=== PATIENT | female | born 1995 | race African-American/Black ===

== ENCOUNTER 2017-01-31 12:34 | Emergency (ER) | payer OTHER ==
[~2017-01-31] VITALS: Ht 160 cm; Wt 56.0 kg
[2017-01-31 13:45] LABS: BILIRUBIN,URINE NEG (NEG); CLARITY,URINE CLOUDY; COLOR,URINE YELLOW; GLUCOSE,URINE NEG (NEG)
[2017-01-31 13:46] LABS: BACTERIA,URINE MOD /HPF (0-FEW); NITRITE,URINE NEG (NEG); RBC,URINE RARE /HPF (0-2); SQUAMOUS EPITHELIAL CELL,UR MANY /LPF; UROBILINOGEN,URINE 1 mg/dL (0.2 mg/dL)
[2017-01-31] MEDS ORDERED: IOHEXOL 240 MG/ML 50ML VIAL. PO ONE (14:30)
[2017-01-31] MEDS ORDERED: ONDANSETRON PF 4 MG/2 ML VIAL. IV ONE (14:30)
[2017-01-31] MEDS ORDERED: IOHEXOL 300 MG/ML 75 ML VIAL. IV ONE (14:30)
[2017-01-31] MEDS ORDERED: MORPHINE SULFATE 4 MG/ML DISP.SYRIN. IV ONE (14:30)
--- NOTE | 2017-01-31 14:30 | ED.ADGEN ---
Past History Past Medical History: Asthma Alcohol Use: None Drug Use: None Adult General Chief Complaint Chief Complaint Right flank pain HPI HPI Patient is a female presents with right flank pain radiating to right lower quadrant pain starting approximately 2 hours prior to ED arrival. Pain is described as sharp, worse with palpation and movement. Patient denies urinary frequency urgency, vaginal bleeding discharge. No history of kidney stones or ovarian cysts. Patient's last menstrual period was 2 weeks ago. On control. No prior abdominal surgeries. Review of Systems Review of Systems ROS as per HPI. Current Medications Current Medications Current Medications Medications (Trade) Dose Ordered Sig/Lewis Start Time Stop Time Status Last Admin Dose Admin Iohexol (Omnipaque 240 Mg/ml) 30 ml 1X ONCE 01/31/17 14:30 01/31/17 14:31 DC Iohexol (Omnipaque 300 Mg/ml) 75 ml 1X ONCE 01/31/17 14:30 01/31/17 14:31 DC Morphine Sulfate (Morphine 4mg Syringe) 4 mg 1X ONCE 01/31/17 14:30 01/31/17 14:31 DC 01/31/17 14:47 4 MG Ondansetron HCl (Zofran) 4 mg 1X ONCE 01/31/17 14:30 01/31/17 14:31 DC 01/31/17 14:48 4 MG Allergies Allergies Allergies Coded Allergies Type Severity Reaction Last Updated Verified No Known Drug Allergies 01/31/17 No Physical Exam Physical Exam Constitutional: Well developed, well nourished, no acute distress, non-toxic appearance. [] HENT: Normocephalic, atraumatic, bilateral external ears normal, oropharynx moist, no oral exudates, nose normal. Eyes: PERRLA, EOMI, conjunctiva normal, no discharge. Neck: Normal range of motion, no tenderness, supple, no stridor. Cardiovascular:Heart rate regular rhythm, no murmur. Lungs & Thorax: Bilateral breath sounds clear to auscultation. Abdomen: Bowel sounds normal, soft, right lower quadrant pain, tenderness, reproduces with palpation and movement. Skin: Warm, dry. Back: No tenderness, R CVA tenderness. Extremities: No tenderness. Neurologic: Alert and oriented X 3, normal motor function, normal sensory function, no focal deficits noted. Psychologic: Affect normal, judgement normal, mood normal. Current Patient Data Vital Signs Vital Signs Date Time Temp Pulse Resp B/P Pulse Ox O2 Delivery O2 Flow Rate FiO2 01/31/17 14:47 18 100 01/31/17 12:34 98.0 103 Room Air Lab Results Laboratory Tests Test 01/31/17 12:44 01/31/17 12:54 01/31/17 14:30 Urine Collection Type Unknown Urine Color Yellow Urine Clarity Cloudy Urine pH 6.5 Urine Specific [place] >=1.030 Urine Protein 100 mg/dl (NEG-TRACE) Urine Glucose (UA) Negmg/dL (NEG) Urine Ketones (Stick) Negmg/dL (NEG) Urine Blood Neg (NEG) Urine Nitrite Neg (NEG) Urine Bilirubin Neg (NEG) Urine Urobilinogen Dipstick 1mg/dL (0.2 mg/dL) Urine Leukocyte Esterase Trace (NEG) Urine RBC Rare/HPF (0-2) Urine WBC 5-10/HPF (0-4) Urine Squamous Epithelial Cells Many/LPF Urine Bacteria Mod/HPF (0-FEW) Urine Mucus Marked/LPF POC Urine HCG, Qualitative hcg negative (Negative) White Blood Count 3.8x10^3/uL (4.0-11.0) L Red Blood Count 4.49x10^6/uL (3.50-5.40) Hemoglobin 14.0g/dL (12.0-15.5) Hematocrit 42.2% (36.0-47.0) Mean Corpuscular Volume 94fL (79-100) Mean Corpuscular Hemoglobin 31pg (25-35) Mean Corpuscular Hemoglobin Concent 33g/dL (31-37) Red Cell Distribution Width 14.0% (11.5-14.5) Platelet Count 234x10^3/uL (140-400) Neutrophils (%) (Auto) 39% (31-73) Lymphocytes (%) (Auto) 48% (24-48) Monocytes (%) (Auto) 9% (0-9) Eosinophils (%) (Auto) 2% (0-3) Basophils (%) (Auto) 2% (0-3) Neutrophils # (Auto) 1.5x10^3uL (1.8-7.7) L Lymphocytes # (Auto) 1.8x10^3/uL (1.0-4.8) Monocytes # (Auto) 0.3x10^3/uL (0.0-1.1) Eosinophils # (Auto) 0.1x10^3/uL (0.0-0.7) Basophils # (Auto) 0.1x10^3/uL (0.0-0.2) Platelet Estimate Pending Sodium Level 139mmol/L (136-145) Potassium Level 3.8mmol/L (3.5-5.1) Chloride Level 103mmol/L (98-107) Carbon Dioxide Level 31mmol/L (21-32) Anion Gap 5 (6-14) L Blood Urea Nitrogen 10mg/dL (7-20) Creatinine 0.8mg/dL (0.6-1.0) Estimated GFR (Cockcroft-Gault) 107.6 Glucose Level 55mg/dL (70-99) L Calcium Level 9.2mg/dL (8.5-10.1) C-Reactive Protein 1.1mg/L (0-3.3) EKG EKG [] Radiology/Procedures Radiology/Procedures [CT abdomen pelvis: Normal appendix identified, tilted uterus with possible migration of IUD, no dominant ovarian follicles or pelvic lymphnodes per radiology report. ] Impressions: Right sided pelvic pain Course & Med Decision Making Course & Med Decision Making Pertinent Labs and Imaging studies reviewed. (See chart for details) [Nonsurgical evaluation. CT abdomen and pelvis 5 normal appendix, tilted uterus with possible ED migration. Patient denies vaginal bleeding, discharge or dyspareunia. Will treat for presumptive UTI with PCP follow-up for culture results. If symptoms persist, patient required ECONOMIC SPECIALIST evaluation. Return precautions reviewed. Patient verbalizes understanding treatment discharge instructions prior to departure.] Final Impression Final Impression [1. Pelvic pain] Problems: Dragon Disclaimer Dragon Disclaimer This electronic medical record was generated, in whole or in part, using a voice recognition dictation system. SOILA BALLESTEROS DO Jan 31, 2017 14:30
[2017-01-31 14:53] LABS: BASO # 0.1 x10^3/uL (0.0-0.2); BASO % 2 % (0-3); EOS # 0.1 x10^3/uL (0.0-0.7); EOS % 2 % (0-3); HEMATOCRIT 42.2 % (36.0-47.0); LYMPH # 1.8 x10^3/uL (1.0-4.8); LYMPH % 48 % (24-48); MEAN CORPUSCULAR HEMOGLOBIN 31 pg (25-35); MEAN CORPUSCULAR HGB CONC 33 g/dL (31-37); MEAN CORPUSCULAR VOLUME 94 fL (79-100); MONO # 0.3 x10^3/uL (0.0-1.1); MONO % 9 % (0-9); NEUT # 1.5 x10^3uL (1.8-7.7); NEUT % 39 % (31-73); PLATELET COUNT 234 x10^3/uL (140-400); RED BLOOD COUNT 4.49 x10^6/uL (3.50-5.40); WHITE BLOOD COUNT 3.8 x10^3/uL (4.0-11.0)
[2017-01-31 14:58] LABS: C REACTIVE PROTEIN 1.1 mg/L (0-3.3); CALCIUM 9.2 mg/dL (8.5-10.1); CREATININE 0.8 mg/dL (0.6-1.0); GFR 107.6; POTASSIUM 3.8 mmol/L (3.5-5.1)
--- NOTE | 2017-01-31 16:01 | RAD ---
CT study of the abdomen and pelvis with contrast Clinical indications: Lower right abdominal pain for one day. Technique: After IV infusion of 75 cc of Omnipaque 300, helical CT scanning of the abdomen and pelvis was performed. GI contrast was administered per mouth. PQRS Compliance Statement: One or more of the following individualized dose reduction techniques were utilized for this examination: 1. Automated exposure control 2. Adjustment of the mA and/or kV according to patient size 3. Use of iterative reconstruction technique Comparison: None available. Findings: The liver and spleen and pancreas and gallbladder are normal. No extrahepatic biliary ductal dilatation is seen. No adrenal mass is evident. Both kidneys are normal without hydronephrosis or hydroureter. Urinary bladder wall is smooth. IUD is in place within the lower uterine endometrial canal. IUD appears tilted to the side.. Migration into a portion of the myometrium is possible. Urinary bladder wall is smooth. No dominant ovarian cyst or mass is seen. No focal aneurysmal dilatation of the abdominal aorta is seen. No enlarged abdominal or pelvic lymphadenopathy is evident and ex is normal. No obstructive bowel pattern is seen. No free air or free fluid or inflammatory change is seen. No lung base consolidation is evident. No osteolytic process is evident. IMPRESSION: Appendix is normal. No bowel obstruction is evident. An IUD is in place and is located within the lower endometrial canal. The IUD is tilted. Therefore migration into the myometrium is possible.
[2017-01-31 16:25] VITALS: BP 96/55
[2017-01-31 20:08] LABS: % BASOS 1 % (0-3); % EOS 2 % (0-5); % LYMPHS 45 % (24-48); % MONOS 7 % (0-10); % SEGS 40 % (35-66); PLT ESTIMATE ADEQUATE (ADEQUATE)
== END 2017-01-31 16:25 | disposition home or self-care (01) ==
LOC: ER 12:34
DX: R10.2 Pelvic and perineal pain (principal); J45.909 Unspecified asthma, uncomplicated
CPT/HCPCS: 36415; 74177; 80048; 81001; 84703; 85007; 85027; 86140; 87086; 96374; 96375; 99285; J2270; J2405; 81025

== ENCOUNTER 2017-03-17 02:55 | Emergency (ER) | payer OTHER ==
[~2017-03-17] VITALS: Ht 160 cm; Wt 56.0 kg
[2017-03-17 03:00] VITALS: BP 117/79
--- NOTE | 2017-03-17 03:19 | PHYS DOC ---
Past History Past Medical History: Asthma Alcohol Use: None Drug Use: None Adult General Chief Complaint Chief Complaint: CHEST WALL PAIN HPI HPI 21-year-old female presenting to the emergency department with chest pain. Her pain is been present for 3 weeks. It is sharp worse with deep inspiration associated with a cough and without alleviating factors. Pain is intermittent nonradiating and moderate. She has a history of a pulmonary embolism for which she was on anticoagulation for 6 months and currently not on anticoagulation. It was thought this may have been related to oral estrogen therapy for which now she is no longer on. She denies unilateral leg swelling hemoptysis recent immobilization. She denies being short of breath. Review of systems is negative for abdominal pain nausea vomiting diaphoresis. All other review of systems is negative unless otherwise noted in history of present illness. Review of Systems Review of Systems SEE ABOVE. Allergies Allergies Allergies Coded Allergies Type Severity Reaction Last Updated Verified No Known Drug Allergies 01/31/17 No Physical Exam Physical Exam Constitutional: Well developed, well nourished, no acute distress, non-toxic appearance. HENT: Normocephalic, atraumatic, bilateral external ears normal, oropharynx moist, no oral exudates, nose normal. [] Eyes: PERRLA, EOMI, conjunctiva normal, no discharge. Neck: Normal range of motion, no tenderness, supple, no stridor. [] Cardiovascular:Heart rate regular rhythm, no murmur Lungs & Thorax: Bilateral breath sounds clear to auscultation [] Abdomen: Bowel sounds normal, soft, no tenderness, no masses, no pulsatile masses. [] Skin: Warm, dry, no erythema, no rash. Back: No tenderness, no CVA tenderness. [] Extremities: No tenderness, no cyanosis, no clubbing, ROM intact, no edema. [] Neurologic: Alert and oriented X 3, normal motor function, normal sensory function, no focal deficits noted. [] Psychologic: Affect normal, judgement normal, mood normal. [] Current Patient Data Vital Signs Vital Signs Date Time Temp Pulse Resp B/P (MAP) Pulse Ox O2 Delivery O2 Flow Rate FiO2 03/17/17 03:00 98.5 78 20 117/79 (92) 100 EKG EKG [] EKG shows sinus rhythm with a regular rate. ST segments congruent. Not suggestive of ACS. Radiology/Procedures Radiology/Procedures []Chest x-ray reviewed by myself shows no obvious infiltrate or pneumothorax present. No obvious acute cardiopulmonary process present. Course & Med Decision Making Course & Med Decision Making Pertinent Labs and Imaging studies reviewed. (See chart for details) [] 21-year-old presenting to the emergency department with chest pain. Vital signs normal. EKG unremarkable. Chest x-ray obtained. Blood work obtained. dimer neg. wells 1.5. The patient was then discharged home in stable condition to follow up with their primary care physician over the next 2-3 days. They were to return if their symptoms worsened or if they were concerned for any reason. [id number] discharge instructions and return precautions were given. Patient's questions were answered to their satisfaction. Patient is comfortable plan. Dragon Disclaimer Dragon Disclaimer This chart was dictated in whole or in part using Voice Recognition software in a busy, high-work load, and often noisy Emergency Department environment. It may contain unintended and wholly unrecognized errors or omissions. Departure Departure: Impression: Primary Impression: Chest pain Disposition: 01 HOME, SELF-CARE Condition: STABLE Referrals: PCP,UNKNOWN (PCP) Patient Instructions: Chest Pain (Nonspecific) Additional Instructions: Thank you for allowing us to participate in your care today. Followup with your primary care physician in 3 days if your symptoms do not improve. If you do not have a primary care provider you can ask for a list of our primary care providers. Return to the emergency department you have any new or concerning findings. This should be evaluated by the primary care physician and any necessary consulting services for continued management within a few days after discharge. Return to emergency room if you have any new or concerning symptoms including but not limited to fever, chills, nausea, vomiting, intractable pain, any new rashes, chest pain, shortness of air, uncontrolled bleeding, difficulty breathing, and/or vision loss. ANABEL HUERTA MD March 17, 2017 03:19
[2017-03-17 03:32] LABS: BASO # 0.1 x10^3/uL (0.0-0.2); BASO % 2 % (0-3); EOS # 0.1 x10^3/uL (0.0-0.7); EOS % 2 % (0-3); HEMATOCRIT 38.8 % (36.0-47.0); HEMOGLOBIN 13.3 g/dL (12.0-15.5); LYMPH # 2.3 x10^3/uL (1.0-4.8); LYMPH % 58 % (24-48); MEAN CORPUSCULAR HEMOGLOBIN 32 pg (25-35); MEAN CORPUSCULAR HGB CONC 34 g/dL (31-37); MEAN CORPUSCULAR VOLUME 93 fL (79-100); MONO # 0.2 x10^3/uL (0.0-1.1); MONO % 5 % (0-9); NEUT # 1.3 x10^3uL (1.8-7.7); NEUT % 33 % (31-73); PLATELET COUNT 238 x10^3/uL (140-400); RED BLOOD COUNT 4.17 x10^6/uL (3.50-5.40); RED CELL DISTRIBUTION WIDTH 13.4 % (11.5-14.5); WHITE BLOOD COUNT 3.9 x10^3/uL (4.0-11.0)
[2017-03-17 03:37] LABS: PREG TEST PT QUAL NEGATIVE (NEG)
[2017-03-17] MEDS ORDERED: ACETAMINOPHEN 325 MG TABLET PO ONE (03:45)
[2017-03-17 03:48] LABS: CALCIUM 8.8 mg/dL (8.5-10.1); CREATININE 0.8 mg/dL (0.6-1.0); GFR 107.6; POTASSIUM 3.4 mmol/L (3.5-5.1)
--- NOTE | 2017-03-17 07:11 | RAD ---
Portable chest, 03/17/2017: History: Fall, injuries The heart size and pulmonary vascularity are normal. The lungs are clear. There is no evidence of pleural fluid or pneumothorax. IMPRESSION: No acute cardiopulmonary abnormality is detected.
--- NOTE | 2017-03-17 07:45 | EKG ---
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
== END 2017-03-17 04:25 | disposition home or self-care (01) ==
LOC: ER 02:55
DX: R07.89 Other chest pain (principal); R05 Cough; J45.909 Unspecified asthma, uncomplicated; Z86.711 Personal history of pulmonary embolism; Z79.01 Long term (current) use of anticoagulants
CPT/HCPCS: 36415; 71010; 80048; 84484; 84703; 85027; 85379; 93005; 99285-25

== ENCOUNTER 2017-04-28 12:15 | Emergency (ER) | payer OTHER ==
--- NOTE | 2017-04-28 13:36 | PHYS DOC ---
Past History Past Medical History: Asthma, Other Past Surgical History: Other Alcohol Use: None Drug Use: None Adult General Chief Complaint Chief Complaint: SORE THROAT HPI HPI Patient is a 21 year old female who presents with sore throat. She reports 3 day history of sore throat, dry cough. Denies fever, nasal congestion/ rhinorrhea, shortness of breath, vomiting. Denies exposure to ill contacts with similar symptoms. history of strep pharyngitis. Review of Systems Review of Systems Constitutional: Denies fever or chills Eyes: Denies drainage HENT: Denies nasal congestion, reports sore throat Respiratory: Reports cough, denies shortness of breath Cardiovascular: Denies chest pain or edema GI: Denies abdominal pain, nausea, vomiting Musculoskeletal: Denies back pain or joint pain Integument: Denies rash Neurologic: Denies headache Allergies Allergies Allergies Coded Allergies Type Severity Reaction Last Updated Verified No Known Drug Allergies 01/31/17 No Physical Exam Physical Exam Constitutional: Well developed, well nourished, no acute distress, non-toxic appearance. HENT: Normocephalic, atraumatic, bilateral external ears normal, oropharynx moist, posterior oropharynx mild erythema, no tonsillar enlargement or exudate, nose normal. Eyes: conjunctiva normal, no discharge. Neck: supple, no stridor. No cervical lymphadenopathy Cardiovascular: RRR, no murmurs, no edema. Lungs & Thorax: LCTAB, no wheezing, no respiratory distress. Abdomen: soft, nontender, nondistended. Skin: Warm, dry, no erythema, no rash. Back: No tenderness. Extremities: No tenderness Neurologic: Alert and oriented X 3, no focal deficits noted. Psychologic: Affect normal, judgement normal, mood normal. Current Patient Data Vital Signs Vital Signs Date Time Temp Pulse Resp B/P (MAP) Pulse Ox O2 Delivery O2 Flow Rate FiO2 04/28/17 12:15 97.5 89 18 100 Room Air Lab Results Laboratory Tests Test 04/28/17 13:00 Group A Streptococcus Rapid Negative (NEGATIVE) EKG EKG [] Radiology/Procedures Radiology/Procedures [] Course & Med Decision Making Course & Med Decision Making Pertinent Labs and Imaging studies reviewed. (See chart for details) The patient presents with sore throat. Rapid strep negative. Recommend supportive care for viral pharyngitis including rest, by mouth hydration, Tylenol or ibuprofen for pain or fever. Follow-up with primary care physician in 2-3 days if not improving. Return to the emergency department for difficulty breathing or swallowing, any otherwise worsening condition. [] Dragon Disclaimer Dragon Disclaimer This chart was dictated in whole or in part using Voice Recognition software in a busy, high-work load, and often noisy Emergency Department environment. It may contain unintended and wholly unrecognized errors or omissions. Departure Departure: Impression: Primary Impression: Pharyngitis Disposition: HOME, SELF-CARE Condition: STABLE Referrals: PCP,UNKNOWN (PCP) Patient Instructions: Viral Pharyngitis Additional Instructions: You were seen in the emergency department today for sore throat. Strep test was negative. Please rest, drink fluids to stay hydrated, take Tylenol or ibuprofen for pain or fever. Follow-up with primary care physician in 2-3 days if not improving. Return to the emergency department for difficulty breathing or swallowing, or otherwise worsening condition. RONNY WILDER MD Apr 28, 2017 13:36
[2017-04-28 14:15] VITALS: BP 101/61
== END 2017-04-28 14:15 | disposition home or self-care (01) ==
LOC: ER 12:15
DX: J02.9 Acute pharyngitis, unspecified (principal); J45.909 Unspecified asthma, uncomplicated
CPT/HCPCS: 87070; 87880; 99283

== ENCOUNTER 2017-08-24 19:38 | Emergency (ER) | payer OTHER ==
[~2017-08-24] VITALS: Ht 160 cm; Wt 54.7 kg
--- NOTE | 2017-08-24 20:44 | PHYS DOC ---
Past History Past Medical History: No Pertinent History Past Surgical History: No Surgical History Alcohol Use: None Drug Use: None Adult General Chief Complaint Chief Complaint: TOE PROBLEM HPI HPI 22-year-old female complaining of right great toe pain.. Patient had an ingrown toenail on the edge of her great toenail with a small collection of pus. It was hurting so she cut the corner of the nail and the pus drained last night. It is not red or warm but continues to be sore. Patient has no fevers chills sweats or shaking chills. The symptoms have only been present for a little over a day and she did not have any signs of chronic infection. Review of Systems Review of Systems Constitutional: Denies fever or chills [] Eyes: Denies change in visual acuity, redness, or eye pain [] HENT: Denies nasal congestion or sore throat [] Respiratory: Denies cough or shortness of breath [] Cardiovascular: No additional information not addressed in HPI [] GI: Denies abdominal pain, nausea, vomiting, bloody stools or diarrhea [] : Denies dysuria or hematuria [] Musculoskeletal: Denies back pain or joint pain [] Integument: Denies rash or skin lesions [] Neurologic: Denies headache, focal weakness or sensory changes [] Endocrine: Denies polyuria or polydipsia [] Allergies Allergies Allergies Coded Allergies Type Severity Reaction Last Updated Verified No Known Drug Allergies 01/31/17 No Physical Exam Physical Exam Well-appearing patient no acute distress. Benign exam except great toenail with mild soft tissue tenderness lateral edge of the toenail. No erythema or warmth. No fluctuance. No bony tenderness. Otherwise normal mid and proximal toe and foot Constitutional: Well developed, well nourished, no acute distress, non-toxic appearance. [] HENT: Normocephalic, atraumatic, bilateral external ears normal, oropharynx moist,, nose normal. [] Eyes: eOMI, conjunctiva normal, no discharge. [] Neck: Normal range of motion, no tenderness, supple, no stridor. [] Cardiovascular: no tachycardia Lungs & Thorax: Normal symmetrical chest wall excursion with no asymmetry Abdomen: Bowel sounds normal, soft, no tenderness, no masses, no pulsatile masses. [] Skin: Warm, dry, no erythema, no rash. [] Back: Normal-appearing Extremities: No tenderness, no cyanosis, no clubbing, ROM intact, no edema. [] Neurologic: Alert and oriented X 3, , no focal deficits noted. [] Psychologic: Affect normal, judgement normal, mood normal. [] Current Patient Data Vital Signs Vital Signs Date Time Temp Pulse Resp B/P (MAP) Pulse Ox O2 Delivery O2 Flow Rate FiO2 08/24/17 19:55 97.8 90 20 98 Room Air EKG EKG [] Radiology/Procedures Radiology/Procedures [] Course & Med Decision Making Course & Med Decision Making Pertinent Labs and Imaging studies reviewed. (See chart for details) Signs and symptoms consistent with mild paronychia which drained spontaneously when patient clipped the edge of her toenail. No evidence of cellulitis and patient has already extracted the corner of her toenail from being ingrown. No further workup or treatment indicated. Patient aware to take NSAIDs soak the toe and follow-up with segmental paver installer. sHe agrees with outpatient follow-up and Strict return precautions given [] Dragon Disclaimer Dragon Disclaimer This chart was dictated in whole or in part using Voice Recognition software in a busy, high-work load, and often noisy Emergency Department environment. It may contain unintended and wholly unrecognized errors or omissions. Departure Departure: Impression: Primary Impression: Paronychia of great toe of right foot Additional Impression: Ingrown toenail Disposition: 01 HOME, SELF-CARE Condition: GOOD Referrals: PCP,UNKNOWN (PCP) Patient Instructions: Paronychia Additional Instructions: U had a paronychia which you drained. It appears this was the result of an ingrown toenail which you addressed at home by cutting off the corner of the toenail. These are the same interventions that we do in the emergency department that you had artery accomplished at home. Take ibuprofen 800 mg every 6 hours as well as Tylenol every 4 hours as needed for pain. Do warm soaks and encourage drainage. After soaking, pat dry and apply clean dressing until resolved. Follow-up with your doctor in the segmental paver installer which is a foot doctor to discuss continued management of this condition as well as future management of any tendency toward ingrown toenail. Return for signs of evolving or worsening infection. Problem Qualifiers TJ BENITEZ MD Aug 24, 2017 20:44
[2017-08-24 20:55] VITALS: BP 116/72
[2017-08-24] MEDS ORDERED: IBUPROFEN 600 MG TABLET. PO ONE (21:00)
== END 2017-08-24 20:57 | disposition home or self-care (01) ==
LOC: ER 19:38
DX: L03.031 Cellulitis of right toe (principal); L60.0 Ingrowing nail
CPT/HCPCS: 99282

== ENCOUNTER 2017-11-10 06:25 | Emergency (ER) | payer OTHER ==
[~2017-11-10] VITALS: Ht 157.5 cm; Wt 54.4 kg
--- NOTE | 2017-11-10 06:51 | PHYS DOC ---
General Chief Complaint: MECHANICAL FALL Stated Complaint: LEFT ARM INJURY Time Seen by MD: 06:41 Source: patient Exam Limitations: no limitations Problems: History of Present Illness Initial Comments Patient is a 22-year-old female coming to the emergency department complaining of fall injury to her left wrist. Patient states that yesterday she slipped and fell on the ice, falling onto her outstretched left hand that she tried to catch herself. She's had worsening pain at the posterolateral wrist worse with wrist flexion and extension, she does have tenderness at the snuffbox of the left upper extremity. No numbness tingling weakness or radiating symptoms, pain is described as sharp and localized throbbing at times severe at its worst primarily when moved or palpated, mild and achy at rest. She holds the extremity Abducted and internally rotated supporting the left hand and wrist with her right arm in obvious discomfort. She denies any other injuries suffered from the fall, denies hitting her head or losing consciousness no head or neck pain and no low back pain. Patient states that at the time of the fall she was rushing to try to get her child who she feared would slip and fall on the ice. Onset: yesterday Severity: moderate Pain/Injury Location: left wrist Method of Injury: fell Modifying Factors: worse with jarring, worse with movement, improves with rest Allergies: Coded Allergies: No Known Drug Allergies (Unverified , 01/31/17) Past Medical History Medical History: other (PE) Surgical History: noncontributory Social History Smoker: non-smoker Alcohol: none Drugs: none Review of Systems Constitutional: denies chills, denies diaphoresis, denies fever, denies malaise Respiratory: denies cough, denies shortness of breath Cardiovascular: denies chest pain Gastrointestinal: denies diarrhea, denies nausea, denies vomiting Musculoskeletal: see HPI Psychiatric/Neurological: see HPI Physical Exam General Appearance: WD/WN, no apparent distress Neck: non-tender, supple Cardiovascular/Respiratory: normal peripheral pulses, no respiratory distress Back: no CVA tenderness, no vertebral tenderness Wrist: bone tenderness, limited ROM, soft tissue tenderness (no palpable deformity or obvious swelling or bruising, range of motion is limited in all directions due to patient's discomfort. Tendons appear to be intact and no obvious ligamentous injury on physical exam. There is snuffbox tenderness indicative of possible scaphoid fracture images are now pending.) Neurologic/Tendon: normal sensation, normal motor functions, normal tendon functions, responds to pain, no evidence tendon injury Psychiatric: alert, oriented x 3 Skin: normal color, warm/dry Orders, Labs, Meds PATIENT: PITA HENDRIX ACCOUNT: [id number] : 1995 LOCATION: ER AGE: 22 SEX: F EXAM STATUS: REG ER ORD. PHYSICIAN: JAY MANN DO REASON: fall, snuff box tenderness PROCEDURE: WRIST 3V LEFT Left wrist, 4 views, 11/10/2017: History: Fall, soft box tenderness No fracture or dislocation is identified. IMPRESSION: No acute bony abnormality is detected. DICTATED AND SIGNED BY: MIGUE ORONA MD DATE: 11/10/17701 CC: PCP,UNKNOWN; JAY MANN DO ~ Departure Time of Disposition: 07:15 Disposition: 01 HOME, SELF-CARE Diagnosis: Left Wrist Sprain Condition: GOOD (Left Wrist Sprain contrastHospital) Patient Instructions: RICE - Routine Care for Injuries, [id number], Wrist Sprain with Rehab-SportsMed Additional Instructions: RICE, see handout. Wear splint as needed for symptom control. No use left hand until cleared by doctor (work note given). Prescription: Tylenol with Codeine quantity 10 [id number] ibuprofen for baseline discomfort. Take medications with food. Follow-up with your doctor in 5-7 days for recheck and further activity restriction modifications. Return to ED with new or changing symptoms. JAY MANN DO Nov 10, 2017 06:51
[2017-11-10] MEDS ORDERED: ONDANSETRON ODT 4 MG TAB.RAPDIS PO ONE (07:00)
[2017-11-10] MEDS ORDERED: HYDROcodone/APAP 5/325MG 1 TAB TABLET PO ONE (07:00)
--- NOTE | 2017-11-10 07:06 | RAD ---
Left wrist, 4 views, 11/10/2017: History: Fall, soft box tenderness No fracture or dislocation is identified. IMPRESSION: No acute bony abnormality is detected.
[2017-11-10] MEDS ORDERED: ACET-704 PO ×2 (07:15→08:05)
[2017-11-10 08:20] VITALS: BP 100/68
== END 2017-11-10 08:25 | disposition home or self-care (01) ==
LOC: ER 06:25
DX: S63.502A Unspecified sprain of left wrist, initial encounter (principal); W00.0XXA Fall on same level due to ice and snow, initial encounter; Y93.89 Activity, other specified; Y99.8 Other external cause status; Y92.89 Other specified places as the place of occurrence of the external cause
CPT/HCPCS: 29125; 73110; 99284; Q0162

== ENCOUNTER 2017-12-15 04:48 | Emergency (ER) | payer OTHER ==
[~2017-12-15] VITALS: Ht 157.5 cm; Wt 57.2 kg
[~2017-12-15 04:48] MED LIST: ACET-704 PO
--- NOTE | 2017-12-15 04:54 | ED.ADGEN ---
Past History Past Medical History: Asthma, Other Past Surgical History: No Surgical History Alcohol Use: None Drug Use: None Adult General Chief Complaint Chief Complaint " I miguel started getting sick ... and now I am coughing all the time.. nose running.. .. I have asthma.. and been using my meds.. " HPI HPI Patient is a 22 year old female who presents with above hx and complaints of wheezing and coughing.. Pt has hx Asthma and has been using home meds as directed. No recent travel has been exposed to her then children who have been sick with upper respiratory infections. Patient normally follows at [facility] for care. She does have a history of past pulmonary embolisms. Review of Systems Review of Systems Constitutional: Subjective history of fever or chills [] Eyes: Denies change in visual acuity, redness, or eye pain [] HENT: History of nasal congestion and rhinorrhea Respiratory: Hx of cough , wheezing and shortness of breath [] Cardiovascular: No additional information not addressed in HPI [] GI: Denies abdominal pain, nausea, vomiting, bloody stools or diarrhea [] : Denies dysuria or hematuria [] Musculoskeletal: Denies back pain or joint pain [] Integument: Denies rash or skin lesions [] Neurologic: Denies headache, focal weakness or sensory changes [] Endocrine: Denies polyuria or polydipsia [] All other systems were reviewed and found to be within normal limits, except as documented in this note. Family History Family History Upper respiratory infections Current Medications Current Medications Current Medications Medications (Trade) Dose Ordered Sig/Lewis Start Time Stop Time Status Last Admin Dose Admin Albuterol Sulfate (Ventolin Hfa) 2 puff 1X ONCE 12/15/17 05:30 12/15/17 05:31 DC 12/15/17 07:00 2 PUFF Diphenhydramine HCl (Benadryl) 25 mg 1X ONCE 12/15/17 05:30 12/15/17 05:31 DC 12/15/17 05:13 25 MG Info (Do NOT chart on this entry -- for MONITORING) 1 each PRN DAILY PRN 12/15/17 05:30 12/15/17 07:29 DC Iohexol (Omnipaque 300 Mg/ml) 75 ml 1X ONCE 12/15/17 06:00 12/15/17 06:01 DC 12/15/17 05:38 75 ML Lactated Ringer's 1,000 ml @ 1,000 mls/hr Q1H 12/15/17 05:30 12/15/17 06:29 DC 12/15/17 05:30 1,000 MLS/HR Magnesium Hydroxide (Milk Of Magnesia) 2,400 mg 1X ONCE 12/15/17 07:00 12/15/17 07:01 DC Oxycodone/ Acetaminophen (Percocet 5/325) 2 tab 1X ONCE 12/15/17 05:30 12/15/17 05:31 DC 12/15/17 05:13 2 TAB Prednisone (Prednisone) 50 mg 1X ONCE 12/15/17 05:30 12/15/17 05:31 DC 12/15/17 05:14 50 MG See Nursing for home meds. Allergies Allergies Allergies Coded Allergies Type Severity Reaction Last Updated Verified No Known Drug Allergies 12/15/17 No Physical Exam Physical Exam Constitutional: moderately acute distress, non-toxic appearance. [] HENT: Normocephalic, atraumatic, bilateral external ears normal, oropharynx moist, injected pharynx, no oral exudates, nose rhinorrhea. Eyes: PERRLA, EOMI, conjunctiva normal, no discharge. [] Neck: Normal range of motion, no tenderness, supple, no stridor. [] Cardiovascular:Heart rate regular rhythm, no murmur [] Lungs & Thorax: Bilateral breath sounds equal with scattered wheezes at apex on auscultation [] Abdomen: Bowel sounds normal, soft, no tenderness, no masses, no pulsatile masses. [] Skin: Warm, dry, no erythema, no rash. [] Back: No tenderness, no CVA tenderness. [] Extremities: No tenderness, no cyanosis, no clubbing, ROM intact, no edema. [] Neurologic: Alert and oriented X 3, normal motor function, normal sensory function, no focal deficits noted. [] Psychologic: Affect anxious, judgement normal, mood normal. [] Current Patient Data Vital Signs Vital Signs Date Time Temp Pulse Resp B/P (MAP) Pulse Ox O2 Delivery O2 Flow Rate FiO2 12/15/17 05:45 97.8 94 20 100 Room Air 12/15/17 05:00 114/84 (94) Lab Results Laboratory Tests Test 12/15/17 04:59 12/15/17 05:35 12/15/17 05:55 Influenza Type A (Rapid) Negative (NEGATIVE) Influenza Type B (Rapid) Negative (NEGATIVE) Group A Streptococcus Rapid Negative (NEGATIVE) White Blood Count 3.5 x10^3/uL (4.0-11.0) L Red Blood Count 4.42 x10^6/uL (3.50-5.40) Hemoglobin 14.4 g/dL (12.0-15.5) Hematocrit 42.5 % (36.0-47.0) Mean Corpuscular Volume 96 fL (79-100) Mean Corpuscular Hemoglobin 33 pg (25-35) Mean Corpuscular Hemoglobin Concent 34 g/dL (31-37) Red Cell Distribution Width 14.9 % (11.5-14.5) H Platelet Count 181 x10^3/uL (140-400) Neutrophils (%) (Auto) 36 % (31-73) Lymphocytes (%) (Auto) 40 % (24-48) Monocytes (%) (Auto) 12 % (0-9) H Eosinophils (%) (Auto) 11 % (0-3) H Basophils (%) (Auto) 1 % (0-3) Neutrophils # (Auto) 1.3 x10^3uL (1.8-7.7) L Lymphocytes # (Auto) 1.4 x10^3/uL (1.0-4.8) Monocytes # (Auto) 0.4 x10^3/uL (0.0-1.1) Eosinophils # (Auto) 0.4 x10^3/uL (0.0-0.7) Basophils # (Auto) 0.0 x10^3/uL (0.0-0.2) Prothrombin Time 10.6 SEC (9.4-11.4) Prothrombin Time INR 1.0 (0.9-1.1) PTT 25 SEC (23-33) D-Dimer (Rin) 0.31 mg/L (0.00-0.50) Sodium Level 138 mmol/L (136-145) Potassium Level 4.0 mmol/L (3.5-5.1) Chloride Level 102 mmol/L (98-107) Carbon Dioxide Level 30 mmol/L (21-32) Anion Gap 6 (6-14) Blood Urea Nitrogen 13 mg/dL (7-20) Creatinine 0.7 mg/dL (0.6-1.0) Estimated GFR (Cockcroft-Gault) 124.4 Glucose Level 100 mg/dL (70-99) H Calcium Level 8.4 mg/dL (8.5-10.1) L Magnesium Level 1.6 mg/dL (1.8-2.4) L Total Bilirubin 0.2 mg/dL (0.2-1.0) Direct Bilirubin 0.1 mg/dL (0.0-0.2) Aspartate Amino Transferase (AST) 13 U/L (15-37) L Alanine Aminotransferase (ALT) 15 U/L (14-59) Alkaline Phosphatase 51 U/L (46-116) Troponin I Quantitative < 0.017 ng/mL (0-0.055) FC-Aim-M-Type Natriuretic Peptide 24 pg/mL (0-124) Total Protein 7.0 g/dL (6.4-8.2) Albumin 3.6 g/dL (3.4-5.0) Urine Collection Type Unknown Urine Color Straw Urine Clarity Clear Urine pH 7.0 Urine Specific Foster 1.010 Urine Protein Neg (NEG-TRACE) Urine Glucose (UA) Neg mg/dL (NEG) Urine Ketones (Stick) Neg mg/dL (NEG) Urine Blood Neg (NEG) Urine Nitrite Neg (NEG) Urine Bilirubin Neg (NEG) Urine Urobilinogen Dipstick 0.2 mg/dL (0.2 mg/dL) Urine Leukocyte Esterase Neg (NEG) Urine RBC 0 /HPF (0-2) Urine WBC 0 /HPF (0-4) Urine Squamous Epithelial Cells Occ /LPF Urine Bacteria 0 /HPF (0-FEW) Urine Opiates Screen Neg (NEG) Urine Methadone Screen Neg (NEG) Urine Barbiturates Neg (NEG) Urine Phencyclidine Screen Neg (NEG) Urine Amphetamine/Methamphetamine Neg (NEG) Urine Benzodiazepines Screen Neg (NEG) Urine Cocaine Screen Neg (NEG) Urine Cannabinoids Screen Neg (NEG) Urine Ethyl Alcohol Neg (NEG) EKG EKG My interpretation of EKG shows a sinus rhythm at 86 bpm. No acute morphology[] Radiology/Procedures Radiology/Procedures Interpretation of chest x-ray shows some hyperinflation. But no large infiltrate. CT of chest shows no obvious pulmonary embolism.[] Course & Med Decision Making Course & Med Decision Making Pertinent Labs and Imaging studies reviewed. (See chart for details). Rest. Push fluids. Tylenol and Ibuprofen for discomfort and fever. Prednisone 50 mg day x 5. Use MDI two puffs four times a day. Follow up with primary. [] Final Impression Final Impression 1. Asthma Exacerbation 2. Upper Respiratory Infection 3. Hypomagnesium 4. Viral Syndrome Problems: Dragon Disclaimer Dragon Disclaimer This electronic medical record was generated, in whole or in part, using a voice recognition dictation system. NAVEEN CAMEJO MD Dec 15, 2017 04:54
[2017-12-15] MEDS ORDERED: ACET500T68 PO (05:06)
[2017-12-15] MEDS ORDERED: DIPH25CA58 PO (05:06)
[2017-12-15] MEDS ORDERED: IBUP400T18 PO (05:06)
[2017-12-15] MEDS ORDERED: PRED50TA PO (05:06)
[2017-12-15] MEDS ORDERED: ALBUTEROL SULFATE 8GM INHALER. INH ONE (05:30)
[2017-12-15] MEDS ORDERED: oxyCODONE/APAP 5/325 1 TAB TABLET PO ONE (05:30)
[2017-12-15] MEDS ORDERED: predniSONE 20 MG TABLET PO ONE (05:30)
[2017-12-15] MEDS ORDERED: CONTRAST GIVEN MC PRN (05:30)
[2017-12-15] MEDS ORDERED: diphenhydrAMINE HCL 25 MG CAPSULE PO ONE (05:30)
[2017-12-15] MEDS ORDERED: IV RINGERS SOLUTION,LACTATED 1,000 ML IV SCH (05:30)
[2017-12-15 05:45] VITALS: BP 114/84
[2017-12-15 05:59] LABS: BASO % 1 % (0-3); EOS # 0.4 x10^3/uL (0.0-0.7); EOS % 11 % (0-3); HEMATOCRIT 42.5 % (36.0-47.0); HEMOGLOBIN 14.4 g/dL (12.0-15.5); LYMPH # 1.4 x10^3/uL (1.0-4.8); LYMPH % 40 % (24-48); MEAN CORPUSCULAR HEMOGLOBIN 33 pg (25-35); MEAN CORPUSCULAR HGB CONC 34 g/dL (31-37); MEAN CORPUSCULAR VOLUME 96 fL (79-100); MONO # 0.4 x10^3/uL (0.0-1.1); MONO % 12 % (0-9); NEUT # 1.3 x10^3uL (1.8-7.7); NEUT % 36 % (31-73); PLATELET COUNT 181 x10^3/uL (140-400); RED BLOOD COUNT 4.42 x10^6/uL (3.50-5.40); RED CELL DISTRIBUTION WIDTH 14.9 % (11.5-14.5); WHITE BLOOD COUNT 3.5 x10^3/uL (4.0-11.0)
[2017-12-15] MEDS ORDERED: IOHEXOL 300 MG/ML 75 ML VIAL. IV ONE (06:00)
--- NOTE | 2017-12-15 06:14 | RAD ---
CTA chest with contrast 12/15/2017 CLINICAL INDICATION: Chest pain, cough. History of PE. COMPARISON: Same day chest radiograph. TECHNIQUE: Multiple CT a images of the chest were obtained following the intravenous administration of 75 mL Omnipaque 300. MIPS were obtained of the chest. FINDINGS: Heart size is normal without significant pericardial effusion. No central or major segmental pulmonary artery filling defect. The thoracic aorta is normal in caliber. No axillary, mediastinal or hilar lymphadenopathy. There is triangular soft tissue density in the anterior mediastinum compatible with residual thymic tissue. The central airways are patent. No pleural effusion or pneumothorax. There is a 0.3 cm noncalcified nodule in the superior segment left lower lobe series 4/image 61. There are no destructive osseous lesions. Limited images of the upper abdomen: Unremarkable. IMPRESSION: 1. No CT evidence of pulmonary embolism. 2. Small, 0.3 cm left lower lobe noncalcified nodule, likely infectious or inflammatory. Electronically signed by: Joselo Rush MD (12/15/2017 6:11 AM) [id number]
[2017-12-15 06:17] LABS: ALBUMIN 3.6 g/dL (3.4-5.0); CALCIUM 8.4 mg/dL (8.5-10.1); CREATININE 0.7 mg/dL (0.6-1.0); DIRECT BILIRUBIN 0.1 mg/dL (0.0-0.2); GFR 124.4; MAGNESIUM 1.6 mg/dL (1.8-2.4); TOTAL BILIRUBIN 0.2 mg/dL (0.2-1.0)
[2017-12-15 06:19] LABS: INFLUENZA A PATIENT NEGATIVE (NEGATIVE); INFLUENZA B PATIENT NEGATIVE (NEGATIVE)
[2017-12-15] MEDS ORDERED: MAGNESIUM HYDROXIDE 2,400 MG/30 ML ORAL.SUSP. PO ONE (07:00)
[2017-12-15 07:05] LABS: AMPHETAMINE/METHAMPHETAMINE NEG (NEG); BARBITURATES NEG (NEG); BENZODIAZEPINES NEG (NEG); CANNABINOIDS NEG (NEG); COCAINE NEG (NEG); METHADONE NEG (NEG); OPIATES NEG (NEG); PHENCYCLIDINE NEG (NEG)
--- NOTE | 2017-12-15 07:08 | RAD ---
Chest, 2 views, 12/15/2017: History: Cough, congestion, runny nose The heart size is normal. The lungs are clear. There is no evidence of pleural fluid. IMPRESSION: No acute cardiopulmonary abnormality is detected
[2017-12-15 07:10] LABS: BACTERIA,URINE 0 /HPF (0-FEW); BILIRUBIN,URINE NEG (NEG); CLARITY,URINE CLEAR; COLOR,URINE STRAW; GLUCOSE,URINE NEG (NEG); NITRITE,URINE NEG (NEG); RBC,URINE 0 /HPF (0-2); SQUAMOUS EPITHELIAL CELL,UR OCC /LPF; UROBILINOGEN,URINE 0.2 mg/dL (0.2 mg/dL); WBC,URINE 0 /HPF (0-4)
--- NOTE | 2017-12-15 08:28 | EKG ---
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
== END 2017-12-15 07:10 | disposition home or self-care (01) ==
LOC: ER 04:48
DX: J45.901 Unspecified asthma with (acute) exacerbation (principal); J06.9 Acute upper respiratory infection, unspecified; E83.42 Hypomagnesemia; B34.9 Viral infection, unspecified; Z86.711 Personal history of pulmonary embolism
CPT/HCPCS: 36415; 71046; 71275; 80048; 80076; 80307; 81001; 83735; 83880; 84484; 85025; 85379; 85610; 85730; 87070; 87804; 87880; 93005; 94640; 96360; 99285; J7120; J7512; J7613; Q0163; Q9967; G0479

== ENCOUNTER 2018-05-09 21:34 | Emergency (ER) | payer OTHER ==
[~2018-05-09] VITALS: Ht 157.5 cm; Wt 56.8 kg
[~2018-05-09 21:34] MED LIST changes: +ACET500T68 PO; +DIPH25CA58 PO; +IBUP400T18 PO; +PRED50TA PO
--- NOTE | 2018-05-09 21:54 | PHYS DOC ---
Past History Past Medical History: Asthma, Other Past Surgical History: Other Alcohol Use: None Drug Use: None Adult General Chief Complaint Chief Complaint: CHEST PAIN HPI HPI Patient is a 22 female with 1 week of chest tightness comes and goes. a/w mild sob. right side pressure but hurts to take deep breath. More in the right but radiates to the center hx of pe in the past back in 2010 when she was on oral contraceptive pill and then also she was on preventative anticoagulation when she was 2014. No fever no cough no trauma no other issues Review of Systems Review of Systems Constitutional: Denies fever or chills [] Eyes: Denies change in visual acuity, redness, or eye pain [] HENT: Denies nasal congestion or sore throat [] GI: Denies abdominal pain, nausea, vomiting, bloody stools or diarrhea [] Neurologic: Denies headache, focal weakness or sensory changes [] Endocrine: Denies polyuria or polydipsia [] All other systems were reviewed and found to be within normal limits, except as documented in this note. Allergies Allergies Allergies Coded Allergies Type Severity Reaction Last Updated Verified No Known Drug Allergies 12/15/17 No Physical Exam Physical Exam Constitutional: Well developed, well nourished, no acute distress, non-toxic appearance. [] HENT: Normocephalic, atraumatic, bilateral external ears normal, oropharynx moist, no oral exudates, nose normal. [] Eyes: PERRLA, EOMI, conjunctiva normal, no discharge. [] Neck: Normal range of motion, no tenderness, supple, no stridor. [] Cardiovascular:Heart rate regular rhythm, no murmur [] Lungs & Thorax: Bilateral breath sounds clear to auscultation [] Abdomen: Bowel sounds normal, soft, no tenderness, no masses, no pulsatile masses. [] Skin: Warm, dry, no erythema, no rash. [] Back: No tenderness, no CVA tenderness. [] Extremities: No tenderness, no cyanosis, no clubbing, ROM intact, no edema. [] Neurologic: Alert and oriented X 3, normal motor function, normal sensory function, no focal deficits noted. [] Psychologic: Affect normal, judgement normal, mood normal. [] EKG EKG EKG shows normal sinus rhythm rate of 69 no ischemic changes normal EKG intervals normal[] Radiology/Procedures Radiology/Procedures [] Impressions: FINDINGS: Images of the upper abdomen reveal no acute abnormality. Bone windows reveal no suspicious lesions. No pulmonary emboli are identified. There is no aortic dissection or aneurysm. There are no pathologically enlarged mediastinal or axillary lymph nodes. Soft tissue density in the anterior mediastinal fat is consistent with a thymic remnant or rebound thymic hyperplasia. There is no pleural or pericardial effusion. The heart is not enlarged. The thyroid gland is relatively hypoattenuating and somewhat enlarged without clear focal lesions by CT. Lung windows reveal no infiltrates. IMPRESSION: 1. No pulmonary embolism. 2. Mild diffuse thyroid enlargement. Correlate for Graves' disease. *One or more of the following individualized dose reduction techniques were utilized for this examination: 1. Automated exposure control. 2. Adjustment of the mA and/or kV according to patient size. 3. Use of iterative reconstruction technique. Electronically signed by: Karen Santo MD (05/09/2018 11:54 PM) [id number] DICTATED AND SIGNED BY: EARLE SANTO MD DATE: 05/09/18 [id number] CC: KATIE HADDAD MD; AILEEN ATKINS MD ~ Course & Med Decision Making Course & Med Decision Making Pertinent Labs and Imaging studies reviewed. (See chart for details) []22-year-old female history of a prior PE presented with right pleuritic chest pain plan for PE rule out. Probably will proceed right a CT angiogram given the patient is fairly high risk for 4.5 points on the well's score. ct negative for pe pt advised on thyroid follow up reassurance Dragon Disclaimer Dragon Disclaimer This electronic medical record was generated, in whole or in part, using a voice recognition dictation system. Departure Departure: Impression: Primary Impression: Chest pain Disposition: HOME, SELF-CARE Condition: STABLE Referrals: KATIE HADDAD MD (PCP) AILEEN ATKINS MD May 09, 2018 21:54
[2018-05-09 22:16] LABS: BASO # 0.1 x10^3/uL (0.0-0.2); BASO % 1 % (0-3); EOS # 0.3 x10^3/uL (0.0-0.7); EOS % 6 % (0-3); HEMATOCRIT 40.7 % (36.0-47.0); HEMOGLOBIN 13.9 g/dL (12.0-15.5); LYMPH # 2.7 x10^3/uL (1.0-4.8); LYMPH % 50 % (24-48); MEAN CORPUSCULAR HEMOGLOBIN 33 pg (25-35); MEAN CORPUSCULAR HGB CONC 34 g/dL (31-37); MEAN CORPUSCULAR VOLUME 96 fL (79-100); MONO # 0.4 x10^3/uL (0.0-1.1); MONO % 7 % (0-9); NEUT % 37 % (31-73); PLATELET COUNT 217 x10^3/uL (140-400); RED BLOOD COUNT 4.23 x10^6/uL (3.50-5.40); RED CELL DISTRIBUTION WIDTH 13.7 % (11.5-14.5); WHITE BLOOD COUNT 5.4 x10^3/uL (4.0-11.0)
[2018-05-09 22:28] LABS: ALBUMIN 3.6 g/dL (3.4-5.0); ALBUMIN/GLOBULIN RATIO 1.2 (1.0-1.7); CALCIUM 8.5 mg/dL (8.5-10.1); CREATININE 0.7 mg/dL (0.6-1.0); GFR 124.4; POTASSIUM 3.6 mmol/L (3.5-5.1); TOTAL BILIRUBIN 0.3 mg/dL (0.2-1.0); TOTAL PROTEIN 6.5 g/dL (6.4-8.2)
[2018-05-09] MEDS ORDERED: IOHEXOL 300 MG/ML 75 ML VIAL. IV ONE (23:00)
[2018-05-09] MEDS ORDERED: CONTRAST GIVEN MC PRN (23:00)
[2018-05-09 23:43] VITALS: BP 93/61
--- NOTE | 2018-05-09 23:57 | RAD ---
EXAM: CT ANGIOGRAPHY OF THE CHEST WITH AND WITHOUT INTRAVENOUS CONTRAST. HISTORY: Chest pain, elevated d-dimer, prior pulmonary embolism. TECHNIQUE: Computed tomographic angiography of the chest was performed before and after the intravenous administration of 75 mL Omnipaque 300. 3-D maximum intensity projections were also performed. COMPARISON: December 15, 2017. FINDINGS: Images of the upper abdomen reveal no acute abnormality. Bone windows reveal no suspicious lesions. No pulmonary emboli are identified. There is no aortic dissection or aneurysm. There are no pathologically enlarged mediastinal or axillary lymph nodes. Soft tissue density in the anterior mediastinal fat is consistent with a thymic remnant or rebound thymic hyperplasia. There is no pleural or pericardial effusion. The heart is not enlarged. The thyroid gland is relatively hypoattenuating and somewhat enlarged without clear focal lesions by CT. Lung windows reveal no infiltrates. IMPRESSION: 1. No pulmonary embolism. 2. Mild diffuse thyroid enlargement. Correlate for Graves' disease. *One or more of the following individualized dose reduction techniques were utilized for this examination: 1. Automated exposure control. 2. Adjustment of the mA and/or kV according to patient size. 3. Use of iterative reconstruction technique. Electronically signed by: Karen Santo MD (05/09/2018 11:54 PM) [id number]
--- NOTE | 2018-05-09 23:58 | RAD ---
EXAM: CHEST 1 VIEW. HISTORY: Chest pain. COMPARISON: December 15, 2017. FINDINGS: A frontal view of the chest is obtained. There are no confluent infiltrates. There is no pneumothorax or pleural effusion. The heart is not enlarged. IMPRESSION: 1. No confluent infiltrates. Electronically signed by: Karen Santo MD (05/09/2018 11:55 PM) [id number]
--- NOTE | 2018-05-10 00:15 | EKG ---
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
== END 2018-05-10 00:35 | disposition home or self-care (01) ==
LOC: ER 21:34
DX: R07.89 Other chest pain (principal); J45.909 Unspecified asthma, uncomplicated; Z86.711 Personal history of pulmonary embolism
CPT/HCPCS: 36415; 71045; 71275; 80053; 81025; 84484; 85025; 85610; 93005; 99285; Q9967

== ENCOUNTER 2018-12-16 21:48 | Emergency (ER) | payer OTHER ==
[~2018-12-16] VITALS: Ht 160 cm; Wt 57.7 kg
--- NOTE | 2018-12-16 22:10 | ED.ADGEN ---
Past History Past Medical History: Anemia, Asthma, Other Past Surgical History: Other Alcohol Use: None Drug Use: None Adult General Chief Complaint Chief Complaint ".. I ve been sick for three weeks.. sore throat.. congestion,.. ear pain... coughing up green .. lee stuff... I was at [facility].. Thursday.. they gave me a shot of Rocephin.. in my hip.. but I still not better...I do have hx Asthma... And I use Symbicort treatments..." [facility] HPI Patient is a 23 year old female dependent who presents above hx with complaints of ear pain, congestion, nasal drainage, pharyngitis, productive cough with green lee sputum, myalgia, arthralgia, malaise. She has had upper respiratory symptoms as well as bronchitic cough for 3 weeks. Was seen Thursday at [facility] and given Rocephin injection. Patient does have a history of asthma. Patient has asthma or bronchitis exacerbations with infections, and seasonal changes. No history of intubations. No hospitalizations for asthma exacerbations. No recent travel or specific ill contacts. Patient up-to-date with vaccinations however did not receive a flu vaccination this season. has not been overseas recently. No history of specific ill contacts. Patient has had a history of anemia in the past. Patient did have pulmonary embolism in 2011. Patient etiology of pulmonary embolisms never determined. Patient not currently on anticoagulants. Patient is normally followed at [facility] Review of Systems Review of Systems Constitutional: Subjective complaints of fever or chills [] Eyes: Denies change in visual acuity, redness, or eye pain [] HENT: History of nasal congestion, nasal drainage, sore throat and ear pain. Respiratory: History of cough and wheezing Cardiovascular: No additional information not addressed in HPI [] GI: Denies abdominal pain, nausea, vomiting, bloody stools or diarrhea [] : Denies dysuria or hematuria [] Musculoskeletal: Denies back pain or joint pain []complains of generalized myalgia, arthralgia and malaise. Integument: Denies rash or skin lesions [] Neurologic: Denies headache, focal weakness or sensory changes [] Endocrine: Denies polyuria or polydipsia [] All other systems were reviewed and found to be within normal limits, except as documented in this note. Family History Family History Noncontributory Current Medications Current Medications Current Medications Medications (Trade) Dose Ordered Sig/Lewis Start Time Stop Time Status Last Admin Dose Admin Albuterol Sulfate (Ventolin Hfa Inhaler) 2 puff 1X ONCE 12/16/18 22:30 12/16/18 22:34 DC Azithromycin (Zithromax) 500 mg 1X ONCE 12/16/18 22:30 12/16/18 22:34 DC 12/16/18 22:55 500 MG Diphenhydramine HCl (Benadryl) 25 mg 1X ONCE 12/16/18 22:30 12/16/18 22:34 DC 12/16/18 22:55 25 MG Lactated Ringer's 1,000 ml @ 1,000 mls/hr Q1H 12/16/18 22:30 12/16/18 23:29 DC 12/16/18 22:43 1,000 MLS/HR Prednisone (Prednisone) 50 mg 1X ONCE 12/16/18 22:30 12/16/18 22:34 DC 12/16/18 22:43 50 MG Allergies Allergies Allergies Coded Allergies Type Severity Reaction Last Updated Verified hydrocodone Allergy Unknown 12/16/18 Yes Physical Exam Physical Exam Constitutional: Well developed, well nourished, moderately acute distress, non- toxic appearance. [] HENT: Normocephalic, atraumatic, bilateral external ears have fluid behind TMs but no obvious erythema, oropharynx moist, injected pharynx and postnasal drainage, no oral exudates, nose swollen turbinates and clear rhinorrhea Eyes: PERRLA, EOMI, conjunctiva normal, no discharge. [] Neck: Normal range of motion, no tenderness, supple, no stridor. [] Cardiovascular:Heart rate regular rhythm, no murmur [] Lungs & Thorax: Bilateral breath sounds equal with scattered wheezes.on Auscultation [patient]occasionally does have coughing spasms with production of minimal discolored green to lee sputum Abdomen: Bowel sounds normal, soft, no tenderness, no masses, no pulsatile masses. [] Skin: Warm, dry, no erythema, no rash. [] Back: No tenderness, no CVA tenderness. [] Extremities: No tenderness, no cyanosis, no clubbing, ROM intact, no edema. No cording in extremities Neurologic: Alert and oriented X 3, normal motor function, normal sensory function, no focal deficits noted. [] Psychologic: Affect anxious, judgement normal, mood normal. [] Current Patient Data Vital Signs Vital Signs Date Time Temp Pulse Resp B/P (MAP) Pulse Ox O2 Delivery O2 Flow Rate FiO2 12/16/18 23:55 99 Room Air 12/16/18 21:59 97.7 84 16 Lab Results Laboratory Tests Test 12/16/18 22:20 12/16/18 22:25 12/16/18 22:32 12/16/18 22:40 Urine Collection Type Unknown Urine Color Colorless Urine Clarity Clear Urine pH 7.0 Urine Specific Ono 1.010 Urine Protein Neg (NEG-TRACE) Urine Glucose (UA) Neg mg/dL (NEG) Urine Ketones (Stick) Neg mg/dL (NEG) Urine Blood Neg (NEG) Urine Nitrite Neg (NEG) Urine Bilirubin Neg (NEG) Urine Urobilinogen Dipstick 0.2 mg/dL (0.2 mg/dL) Urine Leukocyte Esterase Neg (NEG) Urine RBC 0 /HPF (0-2) Urine WBC 0 /HPF (0-4) Urine Squamous Epithelial Cells Mod /LPF Urine Bacteria 0 /HPF (0-FEW) Influenza Type A (Rapid) Negative (NEGATIVE) Influenza Type B (Rapid) Negative (NEGATIVE) Group A Streptococcus Rapid Negative (NEGATIVE) POC Urine HCG, Qualitative hcg negative (Negative) White Blood Count 5.4 x10^3/uL (4.0-11.0) Red Blood Count 4.09 x10^6/uL (3.50-5.40) Hemoglobin 13.3 g/dL (12.0-15.5) Hematocrit 39.7 % (36.0-47.0) Mean Corpuscular Volume 97 fL (79-100) Mean Corpuscular Hemoglobin 33 pg (25-35) Mean Corpuscular Hemoglobin Concent 34 g/dL (31-37) Red Cell Distribution Width 13.7 % (11.5-14.5) Platelet Count 218 x10^3/uL (140-400) Neutrophils (%) (Auto) 41 % (31-73) Lymphocytes (%) (Auto) 50 % (24-48) H Monocytes (%) (Auto) 5 % (0-9) Eosinophils (%) (Auto) 3 % (0-3) Basophils (%) (Auto) 1 % (0-3) Neutrophils # (Auto) 2.2 x10^3uL (1.8-7.7) Lymphocytes # (Auto) 2.7 x10^3/uL (1.0-4.8) Monocytes # (Auto) 0.3 x10^3/uL (0.0-1.1) Eosinophils # (Auto) 0.2 x10^3/uL (0.0-0.7) Basophils # (Auto) 0.0 x10^3/uL (0.0-0.2) Prothrombin Time 9.8 SEC (9.4-11.4) Prothrombin Time INR 1.0 (0.9-1.1) PTT 25 SEC (23-33) D-Dimer (Rin) 0.84 mg/L (0.00-0.50) H Sodium Level 138 mmol/L (136-145) Potassium Level 4.2 mmol/L (3.5-5.1) Chloride Level 104 mmol/L (98-107) Carbon Dioxide Level 29 mmol/L (21-32) Anion Gap 5 (6-14) L Blood Urea Nitrogen 8 mg/dL (7-20) Creatinine 0.8 mg/dL (0.6-1.0) Estimated GFR (Cockcroft-Gault) 105.8 Glucose Level 89 mg/dL (70-99) Calcium Level 8.5 mg/dL (8.5-10.1) Troponin I Quantitative < 0.017 ng/mL (0-0.055) YA-Jya-T-Type Natriuretic Peptide 49 pg/mL (0-124) EKG EKG [] Radiology/Procedures Radiology/Procedures My interpretation of chest x-ray shows no acute cardiopulmonary findings. No large infiltrate. Slightly patchy areas of atelectasis. [] Course & Med Decision Making Course & Med Decision Making Pertinent Labs and Imaging studies reviewed. (See chart for details) Patient to use Flovent 2 puffs twice a day. Patient to rinse mouth after use. Patient take prednisone 50 mg day for 5 days. Patient uses MDI Ventolin 2 puffs 4 times a day. Patient to take Benadryl 25 mg up 4 times a day with for excessive drainage and congestion. Patient take Tylenol and ibuprofen for discomfort. Patient to document peak flows in the morning pre-and post treatment. Patient to take his Zithromax 250 mg daily for 5 days. Document these peak flow, and show these numbers to her primary on follow up. . Patient to follow-up primary care. Patient return if any concerns. Patient declined further workup at this time. Patient declines CT of chest at this time. Risk and benefits discussed. Patient exhibits UCAR capacity. [] Final Impression Final Impression 1. Asthma / Bronchitis 2. Suspect viral syndrome 3. Upper respiratory infection 4. Elevated lymphocytes- 50 5. Very mild elevation of D-dimer 0.84 Dragon Disclaimer Dragon Disclaimer This electronic medical record was generated, in whole or in part, using a voice recognition dictation system. Dragon Disclaimer This chart was dictated in whole or in part using Voice Recognition software in a busy, high-work load, and often noisy Emergency Department environment. It may contain unintended and wholly unrecognized errors or omissions. Discharge Summary Visit Information Final Diagnosis Problems Medical Problems: (1) Asthma exacerbation Status: Acute (2) Bronchitis Status: Acute (3) Viral syndrome Status: Acute Brief Hospital Course Allergies Allergies Coded Allergies Type Severity Reaction Last Updated Verified hydrocodone Allergy Unknown 12/16/18 Yes Vital Signs Vital Signs Date Time Temp Pulse Resp B/P (MAP) Pulse Ox O2 Delivery O2 Flow Rate FiO2 12/16/18 23:55 99 Room Air 12/16/18 21:59 97.7 84 16 Lab Results Laboratory Tests Test 12/16/18 22:20 12/16/18 22:25 12/16/18 22:32 12/16/18 22:40 Urine Collection Type Unknown Urine Color Colorless Urine Clarity Clear Urine pH 7.0 Urine Specific Ono 1.010 Urine Protein Neg (NEG-TRACE) Urine Glucose (UA) Neg mg/dL (NEG) Urine Ketones (Stick) Neg mg/dL (NEG) Urine Blood Neg (NEG) Urine Nitrite Neg (NEG) Urine Bilirubin Neg (NEG) Urine Urobilinogen Dipstick 0.2 mg/dL (0.2 mg/dL) Urine Leukocyte Esterase Neg (NEG) Urine RBC 0 /HPF (0-2) Urine WBC 0 /HPF (0-4) Urine Squamous Epithelial Cells Mod /LPF Urine Bacteria 0 /HPF (0-FEW) Influenza Type A (Rapid) Negative (NEGATIVE) Influenza Type B (Rapid) Negative (NEGATIVE) Group A Streptococcus Rapid Negative (NEGATIVE) Bedside Urine HCG, Qualitative hcg negative (Negative) White Blood Count 5.4 x10^3/uL (4.0-11.0) Red Blood Count 4.09 x10^6/uL (3.50-5.40) Hemoglobin 13.3 g/dL (12.0-15.5) Hematocrit 39.7 % (36.0-47.0) Mean Corpuscular Volume 97 fL (79-100) Mean Corpuscular Hemoglobin 33 pg (25-35) Mean Corpuscular Hemoglobin Concent 34 g/dL (31-37) Red Cell Distribution Width 13.7 % (11.5-14.5) Platelet Count 218 x10^3/uL (140-400) Neutrophils (%) (Auto) 41 % (31-73) Lymphocytes (%) (Auto) 50 % (24-48) Monocytes (%) (Auto) 5 % (0-9) Eosinophils (%) (Auto) 3 % (0-3) Basophils (%) (Auto) 1 % (0-3) Neutrophils # (Auto) 2.2 x10^3uL (1.8-7.7) Lymphocytes # (Auto) 2.7 x10^3/uL (1.0-4.8) Monocytes # (Auto) 0.3 x10^3/uL (0.0-1.1) Eosinophils # (Auto) 0.2 x10^3/uL (0.0-0.7) Basophils # (Auto) 0.0 x10^3/uL (0.0-0.2) Prothrombin Time 9.8 SEC (9.4-11.4) Prothromb Time International Ratio 1.0 (0.9-1.1) Activated Partial Thromboplast Time 25 SEC (23-33) D-Dimer (Rin) 0.84 mg/L (0.00-0.50) Sodium Level 138 mmol/L (136-145) Potassium Level 4.2 mmol/L (3.5-5.1) Chloride Level 104 mmol/L (98-107) Carbon Dioxide Level 29 mmol/L (21-32) Anion Gap 5 (6-14) Blood Urea Nitrogen 8 mg/dL (7-20) Creatinine 0.8 mg/dL (0.6-1.0) Estimated GFR (Cockcroft-Gault) 105.8 Glucose Level 89 mg/dL (70-99) Calcium Level 8.5 mg/dL (8.5-10.1) Troponin I Quantitative < 0.017 ng/mL (0-0.055) WQ-Sdg-D-Type Natriuretic Peptide 49 pg/mL (0-124) Brief Hospital Course Ms. Louise is a 23 old female who presented with upper respiratory infection and asthma exacerbation. Patient declined workup for pulmonary embolism, ultrasound and CT. Discharge Information Condition at Discharge: Improved, Stable Disposition/Orders: D/C to Home Dischare Medications Current Medications Prednisone (Prednisone) 50 mg 1X ONCE PO Last administered on 12/16/18at 22:43 ; Admin Dose 50 MG; Start 12/16/18 at 22:30; Stop 12/16/18 at 22:34; Status DC Lactated Ringer's 1,000 ml @ 1,000 mls/hr Q1H IV Last administered on at 22:43; Admin Dose 1,000 MLS/HR; Start 12/16/18 at 22:30; Stop 12/16/18 at 23:29; Status DC Albuterol Sulfate (Ventolin Hfa Inhaler) 2 puff 1X ONCE INH ; Start 12/16/18 at 22:30; Stop 12/16/18 at 22:34; Status DC Azithromycin (Zithromax) 500 mg 1X ONCE PO Last administered on 12/16/18at 22: 55; Admin Dose 500 MG; Start 12/16/18 at 22:30; Stop 12/16/18 at 22:34; Status DC Diphenhydramine HCl (Benadryl) 25 mg 1X ONCE PO Last administered on at 22:55; Admin Dose 25 MG; Start 12/16/18 at 22:30; Stop 12/16/18 at 22:34; Status DC Active Scripts Active Acetaminophen 500 Mg Tablet 1,000 Mg PO QIDPRN PRN Benadryl (Diphenhydramine Hcl) 25 Mg Capsule 25 Mg PO QIDPRN PRN 90 Days Zithromax (Azithromycin) 250 Mg Tablet 250 Mg PO DAILY 5 Days Flovent 110MCG Hfa (Fluticasone Propionate) 12 Gm Aer.w.adap 2 Puff IH BID 90 Days Prednisone 50 Mg Tablet 50 Mg PO DAILY 5 Days Benadryl (Diphenhydramine Hcl) 25 Mg Capsule 25 Mg PO QIDPRN PRN Ibuprofen 400 Mg Tablet 400 Mg PO QIDPRN PRN Acetaminophen 500 Mg Tablet 1,000 Mg PO QIDPRN PRN Prednisone 50 Mg Tablet 50 Mg PO DAILY Tylenol With Codeine #3 Tablet (Acetaminophen With Codeine) 1 Each Tablet 1 Tab PO Q4-6HRS Tylenol With Codeine #3 Tablet (Acetaminophen With Codeine) 1 Each Tablet 1 Tab PO Q4-6HRS NAVEEN CAMEJO MD Dec 16, 2018 22:10
[2018-12-16] MEDS ORDERED: diphenhydrAMINE HCL 25 MG CAPSULE PO ONE (22:30)
[2018-12-16] MEDS ORDERED: ALBUTEROL SULFATE 8GM INHALER. INH ONE (22:30)
[2018-12-16] MEDS ORDERED: IV RINGERS SOLUTION,LACTATED 1,000 ML IV SCH (22:30)
[2018-12-16] MEDS ORDERED: AZITHROMYCIN 250 MG TABLET. PO ONE (22:30)
[2018-12-16] MEDS ORDERED: predniSONE 10 MG TABLET PO ONE (22:30)
[2018-12-16 23:07] LABS: BASO % 1 % (0-3); EOS # 0.2 x10^3/uL (0.0-0.7); EOS % 3 % (0-3); HEMATOCRIT 39.7 % (36.0-47.0); HEMOGLOBIN 13.3 g/dL (12.0-15.5); LYMPH # 2.7 x10^3/uL (1.0-4.8); LYMPH % 50 % (24-48); MEAN CORPUSCULAR HEMOGLOBIN 33 pg (25-35); MEAN CORPUSCULAR HGB CONC 34 g/dL (31-37); MEAN CORPUSCULAR VOLUME 97 fL (79-100); MONO # 0.3 x10^3/uL (0.0-1.1); MONO % 5 % (0-9); NEUT # 2.2 x10^3uL (1.8-7.7); NEUT % 41 % (31-73); PLATELET COUNT 218 x10^3/uL (140-400); RED BLOOD COUNT 4.09 x10^6/uL (3.50-5.40); RED CELL DISTRIBUTION WIDTH 13.7 % (11.5-14.5); WHITE BLOOD COUNT 5.4 x10^3/uL (4.0-11.0)
[2018-12-16 23:18] LABS: BILIRUBIN,URINE NEG (NEG); CLARITY,URINE CLEAR; COLOR,URINE COLORLESS; GLUCOSE,URINE NEG (NEG); NITRITE,URINE NEG (NEG); UROBILINOGEN,URINE 0.2 mg/dL (0.2 mg/dL)
[2018-12-16 23:19] LABS: BACTERIA,URINE 0 /HPF (0-FEW); RBC,URINE 0 /HPF (0-2); SQUAMOUS EPITHELIAL CELL,UR MOD /LPF; WBC,URINE 0 /HPF (0-4)
[2018-12-16 23:22] LABS: CALCIUM 8.5 mg/dL (8.5-10.1); CREATININE 0.8 mg/dL (0.6-1.0); GFR 105.8; POTASSIUM 4.2 mmol/L (3.5-5.1)
[2018-12-16 23:26] LABS: INFLUENZA A PATIENT NEGATIVE (NEGATIVE); INFLUENZA B PATIENT NEGATIVE (NEGATIVE)
[2018-12-16] MEDS ORDERED: AZIT250T PO (23:47)
[2018-12-16] MEDS ORDERED: PRED50TA PO (23:47)
[2018-12-16] MEDS ORDERED: FLUT12AE IH (23:47)
[2018-12-16] MEDS ORDERED: DIPH25CA58 PO (23:47)
[2018-12-16] MEDS ORDERED: ACET500T68 PO (23:47)
--- NOTE | 2018-12-17 | RAD ---
Chest radiograph 12/16/2018 11:13 PM INDICATION: Cough for 3 weeks COMPARISON: May 09, 2018 TECHNIQUE: Frontal and lateral views of the chest are provided. FINDINGS: The cardiomediastinal silhouette is within normal limits. There are no pleural effusions. There is no pulmonary vascular congestion. There is no pneumothorax. The lungs are clear. No significant osseous abnormality is identified. IMPRESSION: No acute cardiopulmonary process. Electronically signed by: Shannon Myers MD (12/16/2018 11:57 PM) [facility]
[2018-12-17 00:20] VITALS: BP 102/70
== END 2018-12-17 00:20 | disposition home or self-care (01) ==
LOC: ER 21:48
DX: J45.901 Unspecified asthma with (acute) exacerbation (principal); J06.9 Acute upper respiratory infection, unspecified; B34.9 Viral infection, unspecified; D72.820 Lymphocytosis (symptomatic); R79.1 Abnormal coagulation profile; Z86.2 Personal history of diseases of the blood and blood-forming organs and certain disorders involving the immune mechanism; Z86.711 Personal history of pulmonary embolism; Z88.5 Allergy status to narcotic agent
CPT/HCPCS: 36415; 71046; 80048; 81001; 81025; 83880; 84484; 85025; 85045; 85379; 85610; 85730; 87040; 87070; 87804; 87880; 99284; J0456; J7120; J7512; J7613; Q0163

== ENCOUNTER 2019-02-08 19:55 | Emergency (ER) | payer OTHER ==
[~2019-02-08] VITALS: Ht 160 cm; Wt 55.0 kg
[~2019-02-08 19:55] MED LIST changes: +AZIT250T PO; +FLUT12AE IH
--- NOTE | 2019-02-08 20:00 | ED.ADGEN ---
Past History Past Medical History: Anemia, Asthma, DVT, Other Past Medical History hx. pulmonary embolism Past Surgical History: Tonsillectomy Alcohol Use: None Drug Use: None Adult General Chief Complaint Chief Complaint ".. I am worried I might have another blood clot in my lungs.. " HPI HPI Patient is a 23 year old female dependant who presents with above hx and complaints of pleuritic central chest pain which she rates as 8 out of 10. Symptoms have been present the last 2-3 days. Patient has had a previous history of DVTs and pulmonary embolisms. Patient also has had increased abdominal complaints with coughing has been nonproductive. Patient has been using her home inhaler but has not helped. Patient normally follows at [facility]. No history of recent travel. No history of specific ill contacts. No history immunosuppression. Review of Systems Review of Systems Constitutional: Denies fever or chills [] Eyes: Denies change in visual acuity, redness, or eye pain [] HENT: Denies nasal congestion or sore throat [] Respiratory: Hx of non-productive cough or shortness of breath [] Complaints of pleuritic chest pain. Cardiovascular: No additional information not addressed in HPI [] GI: Denies abdominal pain, nausea, vomiting, bloody stools or diarrhea [] : Denies dysuria or hematuria [] Musculoskeletal: Denies back pain or joint pain [] Integument: Denies rash or skin lesions [] Neurologic: Denies headache, focal weakness or sensory changes [] Endocrine: Denies polyuria or polydipsia [] All other systems were reviewed and found to be within normal limits, except as documented in this note. Family History Family History Noncontributory Current Medications Current Medications Current Medications Medications (Trade) Dose Ordered Sig/Lewis Start Time Stop Time Status Last Admin Dose Admin Albuterol Sulfate (Ventolin Hfa Inhaler) 2 puff 1X ONCE 02/08/19 21:00 02/08/19 21:01 DC 02/08/19 21:40 2 PUFF Albuterol/ Ipratropium (Duoneb) 3 ml 1X ONCE 02/08/19 21:00 02/08/19 21:01 DC 02/08/19 21:27 3 ML Enoxaparin Sodium (Lovenox 60mg Syringe) 60 mg 1X ONCE 02/08/19 21:00 02/08/19 21:01 DC 02/08/19 21:02 60 MG Iohexol (Omnipaque 350 Mg/ml) 100 ml 1X ONCE 02/08/19 21:30 02/08/19 21:31 DC 02/08/19 21:08 100 ML Ketorolac Tromethamine (Toradol 30mg Vial) 30 mg 1X ONCE 02/08/19 23:00 02/08/19 23:04 DC 02/08/19 23:14 30 MG Lactated Ringer's 1,000 ml @ 1,000 mls/hr Q1H 02/08/19 20:30 02/08/19 21:29 DC 02/08/19 20:31 1,000 MLS/HR Prednisone (Prednisone) 50 mg 1X ONCE 02/08/19 21:00 02/08/19 21:01 DC 02/08/19 21:02 50 MG Allergies Allergies Allergies Coded Allergies Type Severity Reaction Last Updated Verified hydrocodone Allergy Intermediate 02/08/19 Yes Physical Exam Physical Exam Constitutional: Well developed, well nourished,mild distress, non-toxic appearance. [] HENT: Normocephalic, atraumatic, bilateral external ears normal, oropharynx moist, no oral exudates, nose normal. [] Eyes: PERRLA, EOMI, conjunctiva normal, no discharge. [] Neck: Normal range of motion, no tenderness, supple, no stridor. [] Cardiovascular:Heart rate regular rhythm, no murmur [] Lungs & Thorax: Bilateral breath sounds equal with scattered wheezes auscultation [] Abdomen: Bowel sounds normal, soft, no tenderness, no masses, no pulsatile masses. [] Skin: Warm, dry, no erythema, no rash. [] Back: No tenderness, no CVA tenderness. [] Extremities: No tenderness, no cyanosis, no clubbing, ROM intact, no edema. [] No cording noted. Neurologic: Alert and oriented X 3, normal motor function, normal sensory function, no focal deficits noted. [] Psychologic: Affect normal, judgement normal, mood normal. [] Current Patient Data Vital Signs Vital Signs Date Time Temp Pulse Resp B/P (MAP) Pulse Ox O2 Delivery O2 Flow Rate FiO2 02/08/19 23:50 78 18 108/70 (83) 100 Room Air 02/08/19 19:55 99.2 Lab Results Laboratory Tests Test 02/08/19 20:05 02/08/19 20:20 02/08/19 20:28 Urine Collection Type Unknown Urine Color Yellow Urine Clarity Clear Urine pH 6.5 Urine Specific [place] 1.020 Urine Protein Neg (NEG-TRACE) Urine Glucose (UA) Neg mg/dL (NEG) Urine Ketones (Stick) Trace mg/dL (NEG) Urine Blood Trace (NEG) Urine Nitrite Neg (NEG) Urine Bilirubin Neg (NEG) Urine Urobilinogen Dipstick 1 mg/dL (0.2 mg/dL) Urine Leukocyte Esterase Neg (NEG) Urine RBC Occ /HPF (0-2) Urine WBC 0 /HPF (0-4) Urine Squamous Epithelial Cells Occ /LPF Urine Bacteria 0 /HPF (0-FEW) Urine Opiates Screen Neg (NEG) Urine Methadone Screen Neg (NEG) Urine Barbiturates Neg (NEG) Urine Phencyclidine Screen Neg (NEG) Urine Amphetamine/Methamphetamine Neg (NEG) Urine Benzodiazepines Screen Neg (NEG) Urine Cocaine Screen Neg (NEG) Urine Cannabinoids Screen Neg (NEG) Urine Ethyl Alcohol Neg (NEG) White Blood Count 4.9 x10^3/uL (4.0-11.0) Red Blood Count 4.00 x10^6/uL (3.50-5.40) Hemoglobin 13.2 g/dL (12.0-15.5) Hematocrit 38.6 % (36.0-47.0) Mean Corpuscular Volume 97 fL (79-100) Mean Corpuscular Hemoglobin 33 pg (25-35) Mean Corpuscular Hemoglobin Concent 34 g/dL (31-37) Red Cell Distribution Width 13.0 % (11.5-14.5) Platelet Count 224 x10^3/uL (140-400) Neutrophils (%) (Auto) 57 % (31-73) Lymphocytes (%) (Auto) 32 % (24-48) Monocytes (%) (Auto) 6 % (0-9) Eosinophils (%) (Auto) 5 % (0-3) H Basophils (%) (Auto) 1 % (0-3) Neutrophils # (Auto) 2.8 x10^3uL (1.8-7.7) Lymphocytes # (Auto) 1.6 x10^3/uL (1.0-4.8) Monocytes # (Auto) 0.3 x10^3/uL (0.0-1.1) Eosinophils # (Auto) 0.2 x10^3/uL (0.0-0.7) Basophils # (Auto) 0.0 x10^3/uL (0.0-0.2) Prothrombin Time 10.2 SEC (9.4-11.4) Prothrombin Time INR 1.0 (0.9-1.1) PTT 26 SEC (23-33) D-Dimer (Irn) 0.22 mg/L (0.00-0.50) Sodium Level 139 mmol/L (136-145) Potassium Level 3.7 mmol/L (3.5-5.1) Chloride Level 104 mmol/L (98-107) Carbon Dioxide Level 27 mmol/L (21-32) Anion Gap 8 (6-14) Blood Urea Nitrogen 12 mg/dL (7-20) Creatinine 0.8 mg/dL (0.6-1.0) Estimated GFR (Cockcroft-Gault) 105.8 Glucose Level 105 mg/dL (70-99) H Calcium Level 8.7 mg/dL (8.5-10.1) Magnesium Level 1.8 mg/dL (1.8-2.4) Total Bilirubin 0.3 mg/dL (0.2-1.0) Direct Bilirubin 0.1 mg/dL (0.0-0.2) Aspartate Amino Transferase (AST) 25 U/L (15-37) Alanine Aminotransferase (ALT) 19 U/L (14-59) Alkaline Phosphatase 69 U/L (46-116) Creatine Kinase 570 U/L (26-192) H Troponin I Quantitative < 0.017 ng/mL (0-0.055) VD-Kfb-D-Type Natriuretic Peptide 46 pg/mL (0-124) Total Protein 7.4 g/dL (6.4-8.2) Albumin 3.8 g/dL (3.4-5.0) Lipase 91 U/L (73-393) POC Urine HCG, Qualitative hcg negative (Negative) EKG EKG My interpretation of EKG shows sinus 86, no findings of acute STEMI with contralateral changes. [] Radiology/Procedures Radiology/Procedures I interpretation of chest x-ray shows no acute cardiopulmonary findings. My interpretation of CT of chest shows no obvious infiltrates, pulmonary embolism, or acute cardiopulmonary findings. Does have some what appears to be residual thymic tissue. See formal report when available[] Course & Med Decision Making Course & Med Decision Making Pertinent Labs and Imaging studies reviewed. (See chart for details) Patient take Tylenol and ibuprofen as needed for discomfort. Patient take prednisone 50 mg day for 5 days. Patient uses MDI 2 puffs 4 times a day. Patient follow-up primary care. Patient return if any concerns. [] Final Impression Final Impression 1. Chest wall pain 2. Bronchitis. 3. Past Hx. DVT/ PE[] 4. History of asthma Dragon Disclaimer Dragon Disclaimer This electronic medical record was generated, in whole or in part, using a voice recognition dictation system. Discharge Summary Visit Information Final Diagnosis Problems Medical Problems: (1) Bronchitis Status: Acute (2) Chest pain Status: Acute Brief Hospital Course Allergies Allergies Coded Allergies Type Severity Reaction Last Updated Verified hydrocodone Allergy Intermediate 02/08/19 Yes Vital Signs Vital Signs Date Time Temp Pulse Resp B/P (MAP) Pulse Ox O2 Delivery O2 Flow Rate FiO2 02/08/19 23:50 78 18 108/70 (83) 100 Room Air 02/08/19 19:55 99.2 Lab Results Laboratory Tests Test 02/08/19 20:05 02/08/19 20:20 02/08/19 20:28 Urine Collection Type Unknown Urine Color Yellow Urine Clarity Clear Urine pH 6.5 Urine Specific [place] 1.020 Urine Protein Neg (NEG-TRACE) Urine Glucose (UA) Neg mg/dL (NEG) Urine Ketones (Stick) Trace mg/dL (NEG) Urine Blood Trace (NEG) Urine Nitrite Neg (NEG) Urine Bilirubin Neg (NEG) Urine Urobilinogen Dipstick 1 mg/dL (0.2 mg/dL) Urine Leukocyte Esterase Neg (NEG) Urine RBC Occ /HPF (0-2) Urine WBC 0 /HPF (0-4) Urine Squamous Epithelial Cells Occ /LPF Urine Bacteria 0 /HPF (0-FEW) Urine Opiates Screen Neg (NEG) Urine Methadone Screen Neg (NEG) Urine Barbiturates Neg (NEG) Urine Phencyclidine Screen Neg (NEG) Urine Amphetamine/Methamphetamine Neg (NEG) Urine Benzodiazepines Screen Neg (NEG) Urine Cocaine Screen Neg (NEG) Urine Cannabinoids Screen Neg (NEG) Urine Ethyl Alcohol Neg (NEG) White Blood Count 4.9 x10^3/uL (4.0-11.0) Red Blood Count 4.00 x10^6/uL (3.50-5.40) Hemoglobin 13.2 g/dL (12.0-15.5) Hematocrit 38.6 % (36.0-47.0) Mean Corpuscular Volume 97 fL (79-100) Mean Corpuscular Hemoglobin 33 pg (25-35) Mean Corpuscular Hemoglobin Concent 34 g/dL (31-37) Red Cell Distribution Width 13.0 % (11.5-14.5) Platelet Count 224 x10^3/uL (140-400) Neutrophils (%) (Auto) 57 % (31-73) Lymphocytes (%) (Auto) 32 % (24-48) Monocytes (%) (Auto) 6 % (0-9) Eosinophils (%) (Auto) 5 % (0-3) Basophils (%) (Auto) 1 % (0-3) Neutrophils # (Auto) 2.8 x10^3uL (1.8-7.7) Lymphocytes # (Auto) 1.6 x10^3/uL (1.0-4.8) Monocytes # (Auto) 0.3 x10^3/uL (0.0-1.1) Eosinophils # (Auto) 0.2 x10^3/uL (0.0-0.7) Basophils # (Auto) 0.0 x10^3/uL (0.0-0.2) Prothrombin Time 10.2 SEC (9.4-11.4) Prothromb Time International Ratio 1.0 (0.9-1.1) Activated Partial Thromboplast Time 26 SEC (23-33) D-Dimer (Rin) 0.22 mg/L (0.00-0.50) Sodium Level 139 mmol/L (136-145) Potassium Level 3.7 mmol/L (3.5-5.1) Chloride Level 104 mmol/L (98-107) Carbon Dioxide Level 27 mmol/L (21-32) Anion Gap 8 (6-14) Blood Urea Nitrogen 12 mg/dL (7-20) Creatinine 0.8 mg/dL (0.6-1.0) Estimated GFR (Cockcroft-Gault) 105.8 Glucose Level 105 mg/dL (70-99) Calcium Level 8.7 mg/dL (8.5-10.1) Magnesium Level 1.8 mg/dL (1.8-2.4) Total Bilirubin 0.3 mg/dL (0.2-1.0) Direct Bilirubin 0.1 mg/dL (0.0-0.2) Aspartate Amino Transf (AST/SGOT) 25 U/L (15-37) Alanine Aminotransferase (ALT/SGPT) 19 U/L (14-59) Alkaline Phosphatase 69 U/L (46-116) Creatine Kinase 570 U/L (26-192) Troponin I Quantitative < 0.017 ng/mL (0-0.055) PF-Xpr-M-Type Natriuretic Peptide 46 pg/mL (0-124) Total Protein 7.4 g/dL (6.4-8.2) Albumin 3.8 g/dL (3.4-5.0) Lipase 91 U/L (73-393) Bedside Urine HCG, Qualitative hcg negative (Negative) Brief Hospital Course Ms. Louise is a 23 old female who presented with chest wall pain, bronchitis Discharge Information Condition at Discharge: Improved, Stable Disposition/Orders: D/C to Home Dischare Medications Current Medications Lactated Ringer's 1,000 ml @ 1,000 mls/hr Q1H IV Last administered on at 20:31; Admin Dose 1,000 MLS/HR; Start 02/08/19 at 20:30; Stop 02/08/19 at 21:29; Status DC Enoxaparin Sodium (Lovenox 60mg Syringe) 60 mg 1X ONCE SQ Last administered on 02/08/19at 21:02; Admin Dose 60 MG; Start 02/08/19 at 21:00; Stop 02/08/19 at 21:01; Status DC Albuterol/ Ipratropium (Duoneb) 3 ml 1X ONCE NEB Last administered on at 21:27; Admin Dose 3 ML; Start 02/08/19 at 21:00; Stop 02/08/19 at 21:01; Status DC Albuterol Sulfate (Ventolin Hfa Inhaler) 2 puff 1X ONCE INH Last administered on 02/08/19at 21:40; Admin Dose 2 PUFF; Start 02/08/19 at 21:00; Stop 02/08/19 at 21:01; Status DC Prednisone (Prednisone) 50 mg 1X ONCE PO Last administered on 02/08/19at 21:02 ; Admin Dose 50 MG; Start 02/08/19 at 21:00; Stop 02/08/19 at 21:01; Status DC Iohexol (Omnipaque 350 Mg/ml) 100 ml 1X ONCE IV Last administered on at 21:08; Admin Dose 100 ML; Start 02/08/19 at 21:30; Stop 02/08/19 at 21:31; Status DC Ketorolac Tromethamine (Toradol 30mg Vial) 30 mg 1X ONCE IV Last administered on 02/08/19at 23:14; Admin Dose 30 MG; Start 02/08/19 at 23:00; Stop 02/08/19 at 23:04; Status DC Active Scripts Active Prednisone 50 Mg Tablet 50 Mg PO DAILY 5 Days Acetaminophen 500 Mg Tablet 1,000 Mg PO QIDPRN PRN Benadryl (Diphenhydramine Hcl) 25 Mg Capsule 25 Mg PO QIDPRN PRN 90 Days Zithromax (Azithromycin) 250 Mg Tablet 250 Mg PO DAILY 5 Days Flovent 110MCG Hfa (Fluticasone Propionate) 12 Gm Aer.w.adap 2 Puff IH BID 90 Days Prednisone 50 Mg Tablet 50 Mg PO DAILY 5 Days Benadryl (Diphenhydramine Hcl) 25 Mg Capsule 25 Mg PO QIDPRN PRN Ibuprofen 400 Mg Tablet 400 Mg PO QIDPRN PRN Acetaminophen 500 Mg Tablet 1,000 Mg PO QIDPRN PRN Prednisone 50 Mg Tablet 50 Mg PO DAILY Tylenol With Codeine #3 Tablet (Acetaminophen With Codeine) 1 Each Tablet 1 Tab PO Q4-6HRS Tylenol With Codeine #3 Tablet (Acetaminophen With Codeine) 1 Each Tablet 1 Tab PO Q4-6HRS Dragon Disclaimer This chart was dictated in whole or in part using Voice Recognition software in a busy, high-work load, and often noisy Emergency Department environment. It may contain unintended and wholly unrecognized errors or omissions. NAVEEN CAMEJO MD Feb 08, 2019 20:00
[2019-02-08] MEDS ORDERED: IV RINGERS SOLUTION,LACTATED 1,000 ML IV SCH (20:30)
[2019-02-08 20:42] LABS: BACTERIA,URINE 0 /HPF (0-FEW); BILIRUBIN,URINE NEG (NEG); CLARITY,URINE CLEAR; COLOR,URINE YELLOW; GLUCOSE,URINE NEG (NEG); NITRITE,URINE NEG (NEG); RBC,URINE OCC /HPF (0-2); SQUAMOUS EPITHELIAL CELL,UR OCC /LPF; UROBILINOGEN,URINE 1 mg/dL (0.2 mg/dL); WBC,URINE 0 /HPF (0-4)
[2019-02-08 20:43] LABS: BASO % 1 % (0-3); EOS # 0.2 x10^3/uL (0.0-0.7); EOS % 5 % (0-3); HEMATOCRIT 38.6 % (36.0-47.0); HEMOGLOBIN 13.2 g/dL (12.0-15.5); LYMPH # 1.6 x10^3/uL (1.0-4.8); LYMPH % 32 % (24-48); MEAN CORPUSCULAR HEMOGLOBIN 33 pg (25-35); MEAN CORPUSCULAR HGB CONC 34 g/dL (31-37); MEAN CORPUSCULAR VOLUME 97 fL (79-100); MONO # 0.3 x10^3/uL (0.0-1.1); MONO % 6 % (0-9); NEUT # 2.8 x10^3uL (1.8-7.7); NEUT % 57 % (31-73); PLATELET COUNT 224 x10^3/uL (140-400); WHITE BLOOD COUNT 4.9 x10^3/uL (4.0-11.0)
[2019-02-08 20:43] LABS: BARBITURATES NEG (NEG); BENZODIAZEPINES NEG (NEG); CANNABINOIDS NEG (NEG); COCAINE NEG (NEG); METHADONE NEG (NEG); OPIATES NEG (NEG); PHENCYCLIDINE NEG (NEG)
[2019-02-08 20:44] LABS: AMPHETAMINE/METHAMPHETAMINE NEG (NEG)
[2019-02-08 20:54] LABS: ALBUMIN 3.8 g/dL (3.4-5.0); CALCIUM 8.7 mg/dL (8.5-10.1); CREATININE 0.8 mg/dL (0.6-1.0); DIRECT BILIRUBIN 0.1 mg/dL (0.0-0.2); GFR 105.8; MAGNESIUM 1.8 mg/dL (1.8-2.4); POTASSIUM 3.7 mmol/L (3.5-5.1); TOTAL BILIRUBIN 0.3 mg/dL (0.2-1.0); TOTAL PROTEIN 7.4 g/dL (6.4-8.2)
[2019-02-08] MEDS ORDERED: ENOXAPARIN ** NOTE DOSE ** SYRINGE SQ ONE (21:00)
[2019-02-08] MEDS ORDERED: IPRATRPIUM/ALBUTEROL 0.5/2.5MG 3 ML NEBU. NEB ONE (21:00)
[2019-02-08] MEDS ORDERED: predniSONE 10 MG TABLET PO ONE (21:00)
[2019-02-08] MEDS ORDERED: ALBUTEROL SULFATE 8GM INHALER. INH ONE (21:00)
[2019-02-08] MEDS ORDERED: IOHEXOL 350 MG/ML 100 ML VIAL. IV ONE (21:30)
--- NOTE | 2019-02-08 22:25 | RAD ---
Chest PA and lateral: Reason for examination: Dizziness and chest pain with some back pain. History of asthma. The heart size is normal. Mediastinum is unremarkable. Lung bean are clear. No acute bony abnormalities are seen. Impression: No acute cardiopulmonary disease. CT angiogram of the chest with contrast: Helical images were obtained through the chest with intravenous administration of 90 cc Omnipaque 350 using PE protocol. 3-D MIPS reconstruction was performed in sagittal and coronal planes. Exposure: One or more of the following individualized dose reduction techniques were utilized for this examination: 1. Automated exposure control 2. Adjustment of the mA and/or kV according to patient size 3. Use of iterative reconstruction technique. The trachea and mainstem bronchi show no intraluminal lesions. No abnormality seen at the esophagus. The thoracic aorta shows no aneurysmal dilatation or dissection. There does appear to be some soft tissue prominence anteriorly in the mediastinum which may reflect some residual thymic tissue. There is no evidence of pulmonary embolus. The lung bean show no infiltrates, pulmonary nodules, pleural effusions or pneumothorax. No acute bony abnormalities are seen. In the visualized portion of the abdomen, no abnormality seen at the liver, spleen, adrenal glands or visualized portions of pancreas or kidneys. IMPRESSION: No evidence of pulmonary embolus. Mild prominence of the soft tissues in the anterior mediastinum which may reflect residual thymic tissue. Electronically signed by: Tonia Stein MD (02/08/2019 10:23 PM) [facility]
[2019-02-08] MEDS ORDERED: PRED50TA PO (22:54)
[2019-02-08] MEDS ORDERED: KETOROLAC 30 MG/ML VIAL. IV ONE (23:00)
[2019-02-08 23:50] VITALS: BP 108/70
--- NOTE | 2019-02-09 12:01 | EKG ---
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
== END 2019-02-08 23:50 | disposition home or self-care (01) ==
LOC: ER 19:55
DX: R07.81 Pleurodynia (principal); J45.909 Unspecified asthma, uncomplicated; Z86.718 Personal history of other venous thrombosis and embolism; Z86.711 Personal history of pulmonary embolism; Z86.2 Personal history of diseases of the blood and blood-forming organs and certain disorders involving the immune mechanism; Z88.5 Allergy status to narcotic agent
CPT/HCPCS: 36415; 71046; 71275; 80048; 80076; 80307; 81001; 81025; 82550; 83690; 83735; 83880; 84443; 84484; 85025; 85379; 85610; 85730; 93005; 94640; 96372; 96374; 99285; J1650; J1885; J7120; J7512; J7613; J7620; Q9967; 94664

== ENCOUNTER 2019-02-24 18:50 | Emergency (ER) | payer OTHER ==
[~2019-02-24] VITALS: Ht 160 cm; Wt 54.4 kg
--- NOTE | 2019-02-24 19:24 | PHYS DOC ---
Past History Past Medical History: Anemia, Asthma, DVT, Other Additional Past Medical Histor: pulmonary embolism Past Surgical History: Tonsillectomy Alcohol Use: None Drug Use: None Adult General Chief Complaint Chief Complaint: LOWER EXT PAIN HPI HPI Patient is a 23-year-old female who presents to the emergency department for evaluation of atraumatic pain in her left foot, located primarily on the dorsal aspect of the foot at the base of the first metatarsal. She denies any known injury. She denies any numbness or weakness. Ambulation and palpation worsen her pain. There are no alleviating factors to her symptoms. She declines the need for any analgesic medication at this time. She states she has a past history of pulmonary embolism, although she is not currently on any anticoagulants. She denies any pain proximal to the ankle, and has not having any leg or calf pain, or any shortness of breath. She states that she did not receive a clear etiology or diagnosis as to why she had a pulmonary embolism, but she was using oral contraceptives at the time, sometime she is not currently. She denies possibility of currently. Review of Systems Review of Systems Constitutional: Denies fever or chills [] Respiratory: Denies cough or shortness of breath [] Musculoskeletal: Denies back pain or joint pain, except as noted in the history of present illness. [] Integument: Denies rash or skin lesions [] Neurologic: Denies focal weakness or sensory changes [] Allergies Allergies Allergies Coded Allergies Type Severity Reaction Last Updated Verified hydrocodone Allergy Intermediate 02/08/19 Yes Physical Exam Physical Exam PHYSICAL EXAM: HEENT: Atruamatic NECK: Supple, normal ROM, non-tender. CARDIAC: Regular Rate and Rhythm LUNGS: Clear Bilaterally EXTREMITIES: Inspection of the left foot is normal. There is tenderness to palpation along the base of the first metatarsal, the remainder of the foot is atraumatic and nontender. There is no significant soft tissue swelling or bruising noted. Dorsalis pedis pulse and distal motor and sensory function are normal. There is no tenderness to palpation of the left ankle. There is no calf tenderness to palpation or any edema. The remainder the extremities are unremarkable. Current Patient Data Vital Signs Vital Signs Date Time Temp Pulse Resp B/P (MAP) Pulse Ox O2 Delivery O2 Flow Rate FiO2 02/24/19 18:57 98.1 74 16 100 Room Air EKG EKG [] Radiology/Procedures Radiology/Procedures PROCEDURE: FOOT LEFT 3V FOOT LEFT 3V History: Pain to base 1st metatarsal radiating in to foot, no trauma. No evidence of an acute fracture. No aggressive bone destruction. No significant soft tissue abnormality. IMPRESSION: No evidence of acute abnormality[] Course & Med Decision Making Course & Med Decision Making Pertinent Imaging studies reviewed. (See chart for details) []Patient remains stable. I discussed test results, the need for close follow- up, and return precautions. Dragon Disclaimer Dragon Disclaimer This electronic medical record was generated, in whole or in part, using a voice recognition dictation system. Departure Departure: Impression: Primary Impression: Foot pain Disposition: 01 HOME, SELF-CARE Condition: STABLE Referrals: MARYBETH LACY DO (PCP) Patient Instructions: Foot Contusion Additional Instructions: Ibuprofen 400-600 mg every 6 hours may help improve your symptoms. Applying ice to the affected area may help improve your symptoms. CLAUDIO CALLE MD February 24, 2019 19:24
--- NOTE | 2019-02-24 20:03 | RAD ---
FOOT LEFT 3V History: Pain to base 1st metatarsal radiating in to foot, no trauma. No evidence of an acute fracture. No aggressive bone destruction. No significant soft tissue abnormality. IMPRESSION: No evidence of acute abnormality Electronically signed by: Scotty Juarez MD (02/24/2019 8:00 PM) [facility]
[2019-02-24 20:19] VITALS: BP 100/65
== END 2019-02-24 20:20 | disposition home or self-care (01) ==
LOC: ER 18:50
DX: M79.672 Pain in left foot (principal); Z86.711 Personal history of pulmonary embolism; J45.909 Unspecified asthma, uncomplicated; Z86.2 Personal history of diseases of the blood and blood-forming organs and certain disorders involving the immune mechanism; Z86.718 Personal history of other venous thrombosis and embolism; Z88.5 Allergy status to narcotic agent
CPT/HCPCS: 73630; 99284

== ENCOUNTER 2019-04-08 08:27 | Emergency (ER) | payer OTHER ==
[~2019-04-08] VITALS: Ht 160 cm; Wt 53.6 kg
[2019-04-08 08:36] VITALS: BP 110/68
--- NOTE | 2019-04-08 09:02 | PHYS DOC ---
Past History Past Medical History: Asthma, Other Additional Past Medical Histor: pulmonary embolism Past Surgical History: Other Smoking: Non-smoker Alcohol Use: None Drug Use: None Adult General Chief Complaint Chief Complaint: HAND PROBLEM HPI HPI Patient is a 23-year-old female presents complaining of right hand pain. Patient punched a wall 4 days ago, was trying to treat it at home hoping the pain would go away but it hasn't. Increased pain with movement. She is right hand dominant. No numbness or tingling. Pain is moderate in intensity. No radiation of the pain.[] Review of Systems Review of Systems Constitutional: Denies fever or chills [] Eyes: Denies change in visual acuity, redness, or eye pain [] HENT: Denies nasal congestion or sore throat [] Respiratory: Denies cough or shortness of breath [] Cardiovascular: No chest pain or palpitations[] GI: Denies abdominal pain, nausea, vomiting, bloody stools or diarrhea [] : Denies dysuria or hematuria [] Musculoskeletal: Denies back pain, see history of present illness[] Integument: Denies rash or skin lesions [] Neurologic: Denies headache, focal weakness or sensory changes [] Endocrine: Denies polyuria or polydipsia [] All other systems were reviewed and found to be within normal limits, except as documented in this note. Allergies Allergies Allergies Coded Allergies Type Severity Reaction Last Updated Verified hydrocodone Allergy Intermediate 02/08/19 Yes Physical Exam Physical Exam Constitutional: Well developed, well nourished, no acute distress, non-toxic appearance. [] HENT: Normocephalic, atraumatic, bilateral external ears normal, oropharynx moist, no oral exudates, nose normal. [] Eyes: PERRLA, EOMI, conjunctiva normal, no discharge. [] Neck: Normal range of motion, no tenderness, supple, no stridor. [] Cardiovascular:Heart rate regular rhythm, no murmur [] Lungs & Thorax: Bilateral breath sounds clear to auscultation [] Abdomen: Bowel sounds normal, soft, no tenderness, no masses, no pulsatile masses. [] Skin: Warm, dry, no erythema, no rash. [] Back: No tenderness, no CVA tenderness. [] Extremities: Right hand has erythema and tenderness at the fourth and fifth metacarpal phalangeal joint region. Full active range of motion. No rotational deformity on flexion at the MCP joint. 2 point discrimination is less than 5 mm. FDS, FDP, and extensor mechanisms are intact. The other 3 extremities show: No tenderness, no cyanosis, no clubbing, ROM intact, no edema. [] Neurologic: Alert and oriented X 3, normal motor function, normal sensory function, no focal deficits noted. [] Psychologic: Affect normal, judgement normal, mood normal. [] Current Patient Data Vital Signs Vital Signs Date Time Temp Pulse Resp B/P (MAP) Pulse Ox O2 Delivery O2 Flow Rate FiO2 04/08/19 08:36 98.4 86 20 100 Room Air EKG EKG [] Radiology/Procedures Radiology/Procedures PROCEDURE: HAND RIGHT 3V Right hand, 3 views, 04/08/2019: HISTORY: Hand injury, pain No acute fracture or dislocation is identified. 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 IMPRESSION: No acute bony abnormality is detected.[] Course & Med Decision Making Course & Med Decision Making Pertinent Labs and Imaging studies reviewed. (See chart for details) Medical decision making: There is no evidence of a fracture or dislocation. No evidence of neurologic or vascular compromise. ED course: Patient arrived, was placed in bed, and tolerated exam well. After the return of the imaging findings, these were discussed with the patient. She voiced understanding. All questions were answered. She was discharged in imp roved condition.[] Dragon Disclaimer Dragon Disclaimer This electronic medical record was generated, in whole or in part, using a voice recognition dictation system. Departure Departure: Impression: Primary Impression: Contusion of right hand Disposition: 01 HOME, SELF-CARE Condition: IMPROVED Referrals: MARYBETH LACY DO (PCP) Follow-up in 2 days Patient Instructions: Hand Contusion Additional Instructions: Follow-up with your regular doctor in 2 days. Return to the ER if for sitting pain or any other concerns. Scripts Meloxicam (MELOXICAM) 7.5 Mg Tablet 7.5 MG PO DAILY for PAIN, #20 TAB Prov: TONEY JAVIER DO 04/08/19 Problem Qualifiers Primary Impression: Contusion of right hand Encounter type: initial encounter Qualified Codes: S60.221A - Contusion of right hand, initial encounter TONEY JAVIER DO Apr 08, 2019 09:02
--- NOTE | 2019-04-08 09:25 | RAD ---
Right hand, 3 views, 04/08/2019: HISTORY: Hand injury, pain No acute fracture or dislocation is identified. 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 IMPRESSION: No acute bony abnormality is detected. Electronically signed by: Charles Newby MD (04/08/2019 9:22 AM) [facility]
[2019-04-08] MEDS ORDERED: MELO7.5T29 PO (09:34)
== END 2019-04-08 09:48 | disposition home or self-care (01) ==
LOC: ER 08:27
DX: S60.221A Contusion of right hand, initial encounter (principal); J45.909 Unspecified asthma, uncomplicated; Z86.711 Personal history of pulmonary embolism; Z88.5 Allergy status to narcotic agent; W22.01XA Walked into wall, initial encounter; Y93.89 Activity, other specified; Y92.89 Other specified places as the place of occurrence of the external cause; Y99.8 Other external cause status
CPT/HCPCS: 73130; 99284

== ENCOUNTER 2019-08-18 12:11 | Emergency (ER) | payer OTHER ==
[~2019-08-18] VITALS: Ht 160 cm; Wt 52.2 kg
[~2019-08-18 12:11] MED LIST changes: +MELO7.5T29 PO
[2019-08-18 12:20] VITALS: BP 110/62
--- NOTE | 2019-08-18 12:31 | PHYS DOC ---
Past History Past Medical History: Asthma, Other Additional Past Medical Histor: pulmonary embolism Past Surgical History: Other Smoking: Non-smoker Alcohol Use: None Drug Use: None Adult General Chief Complaint Chief Complaint: KNEE INJURY HPI HPI Patient is a 24 year old female who presents to the emergency department for evaluation of right knee pain, which has been present for a week and half, after the patient states she twisted her knee while at work a week and a half ago, and felt a pop. She has been able to ambulate on it since then but the pain has been persistent. She has taken some ibuprofen with some improvement in her symptoms. She denies any numbness or weakness, or any other injuries. Palpation and ambulation seemed to worsen her pain. There are no alleviating factors to her symptoms. Review of Systems Review of Systems Constitutional: Denies fever or chills [] Musculoskeletal: Denies back pain or joint pain, other than right knee [] Integument: Denies rash or skin lesions [] Neurologic: Denies headache, focal weakness or sensory changes [] Genitourinary: Denies . Uses IUD. Allergies Allergies Allergies Coded Allergies Type Severity Reaction Last Updated Verified hydrocodone Allergy Intermediate 02/08/19 Yes Physical Exam Physical Exam PHYSICAL EXAM: HEENT: Atruamatic NECK: Supple, normal ROM, non-tender. CARDIAC: Regular Rate and Rhythm LUNGS: Clear Bilaterally EXTREMITIES: There is mild tenderness to palpation along the lateral aspect of the right knee, without any ligamentous laxity to anterior, posterior, medial, or lateral stress. There is no exam evidence of joint effusion, no significant skin changes, warmth, or erythema. Distal PMS are intact. Full range of motion in the knee is present. Gait is stable. The remainder the extremities are unremarkable, with normal range of motion. EKG EKG [] Radiology/Procedures Radiology/Procedures knee x-ray interpretation: No acute abnormality.[] Course & Med Decision Making Course & Med Decision Making Pertinent Imaging studies reviewed. (See chart for details) []Patient remains stable. I discussed test results, the need for close follow- up, and return precautions. Discussed use of NSAIDs for pain management As well as an Ortiz wrap. Dragon Disclaimer Dragon Disclaimer This electronic medical record was generated, in whole or in part, using a voice recognition dictation system. Departure Departure: Impression: Primary Impression: Knee sprain Disposition: HOME, SELF-CARE Condition: STABLE Referrals: MARYBETH LACY DO (PCP) Patient Instructions: Knee Sprain Additional Instructions: Ibuprofen 400-600 mg every 6 hours as needed for pain. Using the Ortiz wrap may help improve your comfort. Follow up with [facility], call [phone] to schedule an appointment for further evaluation and treatment. CLAUDIO CALLE MD Aug 18, 2019 12:31
--- NOTE | 2019-08-18 12:41 | RAD ---
EXAM: Right knee, 3 views. HISTORY: Pain. COMPARISON: None. FINDINGS: 3 views of the right knee are obtained. There is no fracture, dislocation or subluxation. There is trace joint fluid without a significant effusion. IMPRESSION: No acute osseous finding. Electronically signed by: Antonietta Rider MD (08/18/2019 12:38 PM) [facility]
== END 2019-08-18 12:45 | disposition home or self-care (01) ==
LOC: ER 12:11
DX: S83.91XA Sprain of unspecified site of right knee, initial encounter (principal); J45.909 Unspecified asthma, uncomplicated; Z86.711 Personal history of pulmonary embolism; Z88.5 Allergy status to narcotic agent; X50.1XXA Overexertion from prolonged static or awkward postures, initial encounter; Y93.89 Activity, other specified; Y92.89 Other specified places as the place of occurrence of the external cause; Y99.8 Other external cause status
CPT/HCPCS: 73562; 99284